=== PATIENT | female | born 1960 | race Caucasian/White ===

== ENCOUNTER 2017-09-09 14:31 | Outpatient (CLI) | payer OTHER ==
--- NOTE | 2017-09-11 16:35 | PET ---
NUCLEAR MEDICINE FDG PET CT: (Positron Emission Tomography) DATE: 09/09/17 HISTORY: 57-year-old female with metastatic lung cancer. Restaging. COMPARISON: 10/29/13. TECHNIQUE: IV injection F-18 Fluorodeoxyglucose (FDG) dose: 13.1 mCi PET and attenuation-correction CT performed from skull base to proximal thighs. FINDINGS: SUV (standard uptake value) numbers given are maximum SUV's: There are multiple new FDG-avid lesions on the current study compared to 2013, including: A 1 x 1 cm left Level V supraclavicular lymph node with SUV of 5.0. Right scapular body at the junction of the coracoid process with SUV of 7.0. Large left hilar/perihilar and left paramediastinal upper lobe pulmonary mass with SUV of 22.1 at it s anterior superior portion. An approximately 2 x 1.5 cm midline, pretracheal anterior mediastinal node (posterior to the upper p ortion of midline sternotomy defect) with SUV of 13.6. Approximately 1.0 cm pulmonary nodule anterior segment left upper lobe with SUV of 3.4. In the anterior portion of the left hilum, enveloped by, and inseparable from, the atelectatic lung tissue at the medial aspect of the left upper lobe, a hypermetabolic lesion with SUV of 7.3. An enlarged, approximately 3 x 2.5 cm gastrohepatic ligament lymph node with SUV of 12.8. Large 6 x 3.5 cm, right adrenal mass with SUV of 7.9. Large 8 x 5.5 cm left adrenal mass with SUV of 12.7 (the maximum SUV is at anterosuperior aspect of mass). Slightly inferior to the level of the left renal artery, a 2.5 x 1.5 cm left paraaortic retroperiton eal lymph node with SUV of 13.8. A 1.5 x 1.5 cm retroperitoneal lymph node just inferior to the crotch of the bifurcation of the abdo ning aorta with SUV of 4.7. There is a left pleural effusion without increased FDG uptake. IMPRESSION: 1. Metastatic lung cancer with large left primary lung tumor mass, and multiple FDG-avid metastatic lesions in the abdomen, chest, and one in the left neck. 2. These include very large bilateral adrenal metastases. 3. Left pleural effusion. JN R POS: [facility]
== END 2017-09-09 14:32 | disposition home or self-care (01) ==
LOC: PET 14:31
PROVIDERS: ATTEND Internal Medicine Hematology & Oncology
DX: C34.91 Malignant neoplasm of unspecified part of right bronchus or lung (principal); C79.72 Secondary malignant neoplasm of left adrenal gland; C79.71 Secondary malignant neoplasm of right adrenal gland; J90 Pleural effusion, not elsewhere classified
CPT/HCPCS: 78815; A9552

== ENCOUNTER 2017-09-18 13:05 | Day surgery (SDC) | payer OTHER ==
[2017-09-18] MEDS ORDERED: Palonosetron HCl 0.25 MG, Admixture Fee 1 EACH in Sodium Chloride 0.9% 50 ML IVPB SCH (13:15)
[2017-09-18] MEDS ORDERED: ADMIXTURE FEE IVPB SCH (13:30)
[2017-09-18] MEDS ORDERED: CARBOPLATIN IVPB SCH (13:30)
[2017-09-18] MEDS ORDERED: SODIUM CHLORIDE 0.9% IVPB SCH ×2 (13:30→14:15)
[2017-09-18] MEDS ORDERED: SODIUM CHLORIDE IVPB SCH (13:30)
[2017-09-18] MEDS ORDERED: Dexamethasone 10 MG, Admixture Fee 1 EACH in Sodium Chloride 0.9% 50 ML IVPB SCH (13:30)
[2017-09-18] MEDS ORDERED: Cyanocobalamin 1000 MCG/ML VIAL SC SCH (13:30)
[2017-09-18] MEDS ORDERED: PEMETREXED IVPB SCH ×2 (13:30→14:15)
[2017-09-18] MEDS ORDERED: Sodium Chloride 0.9% 20 ML ONE (13:47)
== END 2017-09-18 16:09 | disposition home or self-care (01) ==
LOC: ONC/OP 13:05
PROVIDERS: ATTEND Internal Medicine Hematology & Oncology
DX: Z51.11 Encounter for antineoplastic chemotherapy (principal); C34.90 Malignant neoplasm of unspecified part of unspecified bronchus or lung; C79.31 Secondary malignant neoplasm of brain; J42 Unspecified chronic bronchitis; E03.9 Hypothyroidism, unspecified; I25.10 Atherosclerotic heart disease of native coronary artery without angina pectoris; J90 Pleural effusion, not elsewhere classified; F17.210 Nicotine dependence, cigarettes, uncomplicated; F32.9 Major depressive disorder, single episode, unspecified; Z79.899 Other long term (current) drug therapy; Z91.041 Radiographic dye allergy status; Z88.8 Allergy status to other drugs, medicaments and biological substances; Z95.1 Presence of aortocoronary bypass graft; Z90.710 Acquired absence of both cervix and uterus; Z98.890 Other specified postprocedural states; Z92.3 Personal history of irradiation
CPT/HCPCS: 96367; 96372; 96413; 96417; A4216; J1100; J1642; J2469; J3420; J7050; J9045; J9305

== ENCOUNTER 2017-10-09 12:08 | Day surgery (SDC) | payer OTHER ==
[2017-10-09] MEDS ORDERED: Sodium Chloride 0.9% 20 ML ONE (12:24)
[2017-10-09] MEDS ORDERED: Cyanocobalamin 1000 MCG/ML VIAL SC SCH (12:45)
[2017-10-09] MEDS ORDERED: SODIUM CHLORIDE 0.9% IVPB SCH (12:45)
[2017-10-09] MEDS ORDERED: SODIUM CHLORIDE IVPB SCH ×2 (12:45→13:30)
[2017-10-09] MEDS ORDERED: Palonosetron HCl 0.25 MG, Admixture Fee 1 EACH in Sodium Chloride 0.9% 50 ML IVPB SCH (12:45)
[2017-10-09] MEDS ORDERED: Dexamethasone 10 MG, Admixture Fee 1 EACH in Sodium Chloride 0.9% 50 ML IVPB SCH (12:45)
[2017-10-09] MEDS ORDERED: CARBOPLATIN IVPB SCH ×2 (12:45→13:30)
[2017-10-09] MEDS ORDERED: PEMETREXED IVPB SCH (12:45)
[2017-10-09] MEDS ORDERED: ADMIXTURE FEE IVPB SCH ×2 (12:45→13:30)
[2017-10-09 16:37] VITALS: BP 119/54
== END 2017-10-09 16:47 | disposition home or self-care (01) ==
LOC: ONC/OP 12:08
PROVIDERS: ATTEND Internal Medicine Hematology & Oncology
DX: Z51.11 Encounter for antineoplastic chemotherapy (principal); C34.91 Malignant neoplasm of unspecified part of right bronchus or lung; C79.31 Secondary malignant neoplasm of brain; J90 Pleural effusion, not elsewhere classified; J42 Unspecified chronic bronchitis; F17.200 Nicotine dependence, unspecified, uncomplicated; E03.9 Hypothyroidism, unspecified; I25.10 Atherosclerotic heart disease of native coronary artery without angina pectoris; Z79.52 Long term (current) use of systemic steroids; Z79.82 Long term (current) use of aspirin; Z79.899 Other long term (current) drug therapy; Z91.041 Radiographic dye allergy status; Z88.8 Allergy status to other drugs, medicaments and biological substances; Z95.1 Presence of aortocoronary bypass graft; Z92.3 Personal history of irradiation
CPT/HCPCS: 80053; 80061; 80076; 82248; 83615; 84100; 84550; 96367; 96413; 96417; A4216; J1100; J1453; J1642; J2469; J3420; J7050; J9045; J9305

== ENCOUNTER 2017-10-30 15:34 | Day surgery (SDC) | payer OTHER ==
[2017-10-30 16:42] VITALS: BP 124/58; TEMP 97.7
[2017-10-30] MEDS ORDERED: CARBOPLATIN IVPB SCH (16:45)
[2017-10-30] MEDS ORDERED: Palonosetron HCl 0.25 MG in Sodium Chloride 0.9% 50 ML IVPB SCH (16:45)
[2017-10-30] MEDS ORDERED: PEMETREXED IVPB SCH (16:45)
[2017-10-30] MEDS ORDERED: SODIUM CHLORIDE 0.9% IVPB SCH ×2 (16:45)
[2017-10-30] MEDS ORDERED: Dexamethasone 10 MG in Sodium Chloride 0.9% 50 ML IVPB SCH (16:45)
[2017-10-30] MEDS ORDERED: Cyanocobalamin 1000 MCG/ML VIAL SC SCH (16:45)
[2017-10-30] MEDS ORDERED: Folic Acid 1 MG TAB PO SCH (17:00)
[2017-10-30] MEDS ORDERED: Pegfilgrastim 6 MG/0.6 ML Delivery Kit SQ SCH (17:45)
== END 2017-10-30 20:45 | disposition home or self-care (01) ==
LOC: ONC/OP 15:34
PROVIDERS: ATTEND Internal Medicine Hematology & Oncology
DX: Z51.11 Encounter for antineoplastic chemotherapy (principal); C34.91 Malignant neoplasm of unspecified part of right bronchus or lung; E03.9 Hypothyroidism, unspecified; I25.10 Atherosclerotic heart disease of native coronary artery without angina pectoris; F17.200 Nicotine dependence, unspecified, uncomplicated; Z91.041 Radiographic dye allergy status
CPT/HCPCS: 36415; 80053; 82248; 83615; 84100; 84550; 96367; 96372; 96377; 96413; 96417; J1100; J2469; J2505; J3420; J7050; J9045; J9305

== ENCOUNTER 2017-11-14 09:48 | Day surgery (SDC) | payer OTHER ==
[2017-11-14] MEDS ORDERED: Sodium Chloride 0.9% 20 ML ONE (13:59)
[2017-11-14 14:02] VITALS: TEMP 98.1
[2017-11-14 14:55] VITALS: BP 110/51
--- NOTE | 2017-11-14 17:40 | PET ---
NUCLEAR MEDICINE FDG PET CT: (Positron Emission Tomography) DATE: 11/14/17 HISTORY: Restaging of metastatic lung cancer in 57-year-old female. COMPARISON: PET scan of 09/09/17. TECHNIQUE: IV injection F-18 Fluorodeoxyglucose (FDG) dose: 11.5 mCi PET and attenuation-correction CT performed from skull base to proximal thighs. FINDINGS: SUV (standard uptake value) numbers given are maximum SUV's: The previously demonstrated left level V lymph node with previous SUV of 5.0 currently has SUV of 3.3 , but appears larger in size now. The previously demonstrated right scapular lesion with SUV of 7.0 has grown in size, and now has SUV of 8.6. At the left anterior upper cervicothoracic junction, there are two new hypermetabolic lymph nodes. Th e one directly posterior to the lower edge of the sternocleidomastoid muscle has SUV of 3.4, while th e one directly posterior to that has SUV of 3.3 (both are at the T2 level). The large, confluent left paramediastinal/left hilar mass has not significantly changed in size, but its SUV has decreased from maximum of 22.1 at its anterior superior portion, to a current SUV of 9.9 in that location. The posterior superior component of this mass had previous SUV of 12.2, and has cur rent SUV of 10.9. The midline, pretracheal, anterior mediastinal lymph node (posterior to the upper portion of midline sternotomy defect) had previous SUV of 13.6. Current SUV is 11.7. Right mediastinal/hilar lymph node anterior to the right main stem bronchus previously had maximum DON V of 5.0, and currently has SUV of 5.1 (not mentioned on previous report). Also not mentioned on previous report, there was a right hilar lymph node with maximum SUV of 3.9, wh ich now has SUV of 5.9. The previously mentioned small pulmonary nodule in the anterior segment of left upper lobe with previ ous SUV of 3.4 now has SUV of 2.2. There is a new finding of a cluster of many mildly enlarged left subpectoral lymph nodes, with SUV of 4.5. The lesion at the anterior portion of left hilum, enveloped by, and inseparable from, the atelectatic lung tissue at the medial aspect of the left upper lobe, with previous SUV of 7.3 now has SUV of 4.1 . The previously described gastrohepatic ligament lymph node with SUV of 12.8 now has SUV of 4.8. Not mentioned previously, cluster of francisco hepatis lymph nodes with SUV of 4.2 currently also has SUV of 4.2. The large right adrenal mass with previous SUV of 7.3 has current SUV of 6.8. The very large left adrenal mass with previous SUV of 12.7 now has SUV of 7.3 but has grown since the previous study, from previous dimensions of 8 x 5.5 cm, to current dimensions of 9.5 x 6.5 cm. The left para-aortic retroperitoneal lymph node just inferior to the level of the left renal artery h ad previous SUV of 13.8 and has current SUV of 7.2, but has increased in size. There is a new finding of two new left para-aortic retroperitoneal lymph nodes slightly inferior to t hat, with SUV of 4.0. The previous retroperitoneal lymph node just inferior to the crotch of the bifurcation of the abdomin al aorta with SUV of 4.7 now has SUV of 4.4. Not mentioned on previous report, a right retrocrural lymph node with SUV of 7.0 now has SUV of 7.9. Superior to that, another right retrocrural lymph node had previous SUV of 11.9, and has current SUV of 8.6. The volume of left pleural effusion is stable. IMPRESSION: 1. Left lung cancer with widespread metastatic disease. 2. There has been mixed interval response to therapy, with decreasing SUV's in many of the lesio ns, increasing SUV in other lesions, growth in size despite decreasing SUV of other lesions, and randy ral new hypermetabolic lesions. NENA Delcid POS: [facility]
== END 2017-11-14 16:10 | disposition home or self-care (01) ==
LOC: PET 09:48 → ONC/OP 09:48 → EDSTATUS 10:45 → ONC/OP 16:10
PROVIDERS: ATTEND Internal Medicine Hematology & Oncology
PROC: 30233R1 Transfusion of Nonautologous Platelets into Peripheral Vein, Percutaneous Approach (ICD-10-PCS; principal; 2017-11-14)
DX: D64.9 Anemia, unspecified (principal); D69.6 Thrombocytopenia, unspecified; C34.91 Malignant neoplasm of unspecified part of right bronchus or lung; I25.10 Atherosclerotic heart disease of native coronary artery without angina pectoris; E03.9 Hypothyroidism, unspecified; Z91.041 Radiographic dye allergy status; Z88.8 Allergy status to other drugs, medicaments and biological substances; Z79.82 Long term (current) use of aspirin; Z79.899 Other long term (current) drug therapy; C71.9 Malignant neoplasm of brain, unspecified
CPT/HCPCS: 36430; 70553; 78815; 86900; 86901; A4216; A9552; A9579; P9035

== ENCOUNTER 2017-11-14 14:56 | Outpatient (CLI) | payer OTHER ==
[~2017-11-14 14:56] MED LIST: Gadobenate Dimeglumine 529 MG/1 ML (20ML VIAL) ONE
--- NOTE | 2017-11-14 16:09 | MRI ---
BRAIN MRI WITH AND WITHOUT CONTRAST: 11/14/17 HISTORY: Metastatic lung cancer. Occasional blurred vision in the afternoons. COMPARISON: 10/04/17. TECHNIQUE: Brain MRI is performed with and without intravenous gadolinium administration. Multisequential, multi planar imaging is performed. FINDINGS: Redemonstration of postsurgical change along the left frontal convexity. There is a small fluid colle ction deep to the left frontal calvarium, unchanged from the prior examination. There is evidence of hemosiderin deposition in this region on the axial GRE sequence. No evidence of acute hemorrhage on t he axial GRE sequence. There is associated and essentially stable vasogenic edema. Additional white m atter hyperintensity, periventricular in distribution are unchanged as well. There is a stable T2 and FLAIR hyperintensity involving the right temporal lobe. Central arterial flow voids are maintained. Absent restricted diffusion. Adequate aeration of the sinuses and mastoid air cells on the FLAIR sequ ence. On the postcontrast images, there is enhancement at the operative site, in the left frontal lobe. The operative cavity with associated enhancement currently measures 2.7 cm mediolateral x 2.0 cm anterio r posterior x 2.4 cm craniocaudal. Previously, this area of postsurgical change measured 2.8 x 2.1 x 2.1 cm. There are enhancing lesions in the left and right periventricular white matter, right tempora l lobe which are unchanged in size in the short interval between exams. There is a stable and subtle enhancing focus in the right frontal cortex. No new enhancing lesions are appreciated. IMPRESSION: 1. Stable postsurgical change. 2. Stable enhancing lesion. 3. No new lesions are appreciated. POS: [facility]
== END 2017-11-14 14:57 | disposition home or self-care (01) ==
LOC: MRI 14:56
PROVIDERS: ATTEND Internal Medicine Hematology & Oncology
DX: C79.31 Secondary malignant neoplasm of brain (principal); C34.91 Malignant neoplasm of unspecified part of right bronchus or lung; H53.8 Other visual disturbances; Z98.890 Other specified postprocedural states
CPT/HCPCS: 70553

== ENCOUNTER 2017-11-18 20:02 | Inpatient (IN) | payer OTHER, SELFPAY ==
[2017-11-18 20:44] LABS: Hematocrit 24.8 % (36.0-47.0); Red Blood Cell (RBC) Count 2.81 mill/uL (4.20-5.40); White Blood Cell (WBC) Count 9.3 thou/uL (4.8-10.8)
[2017-11-18 20:45] LABS: PTT 47.1 SEC (22.9-36.1); Prothrombin Time 15.2 SEC (12.0-14.7)
[2017-11-18 20:55] LABS: Lactic Acid - Sepsis 1.5 mmol/L (0.5-2.2)
[2017-11-18] MEDS ORDERED: Fentanyl 100 MCG/2 ML VIAL ONE ×2 (20:55→23:11)
[2017-11-18 21:00] LABS: ALT (SGPT) Less than 7 U/L (8-55); AST (SGOT) 11 U/L (5-34); Alkaline Phosphatase 122 U/L (40-150); Anion Gap 16 mmol/L (10-20); BUN (Urea Nitrogen) 12 mg/dL (9.8-20.1); Bilirubin, Total 0.4 mg/dL (0.2-1.2); CK (CPK) 33 U/L (29-168); Calc. Creatinine Clearance 0 mL/min (70-130); Calcium 8.9 mg/dL (7.8-10.44); Carbon Dioxide 22 mmol/L (22-29); Chloride 102 mmol/L (98-107); Estimated GFR-MDRD 74; Magnesium 1.9 mg/dL (1.6-2.6); Protein, Total 6.4 g/dL (6.0-8.3)
[2017-11-18] MEDS ORDERED: Oseltamivir 75 MG CAP PO SCH (21:00)
[2017-11-18 21:02] LABS: #Lymphocytes 0.5 thou/uL (1.20-3.40); #Monocytes 0.8 thou/uL (0.11-0.59); %Basophils 0.1 % (0.0-1.0); %Eosinophils 0.2 % (0.0-10.0); %Lymphocytes 5.6 % (21.0-51.0); %Monocytes 8.3 % (0.0-10.0); Mean Platelet Volume 9.9 fL (7.4-10.4)
[2017-11-18 21:04] LABS: Troponin I 0.028 ng/mL (< 0.028)
--- NOTE | 2017-11-18 21:13 | RAD ---
UPRIGHT PORTABLE CHEST ONE VIEW: 11/18/17 HISTORY: 57-year-old female with chest pain and fever. Right subclavian catheter injection port. Left pleural effusion. Large poorly circumscribed mass in t he left hilar region shows little change from [facility] film from a PET scan dated 11/14/17. Chronic lung changes in the right lung. The amount of right pleural effusion may be slightly more prominent than on the prior study. IMPRESSION: Large poorly circumscribed left hilar and perihilar and mediastinal mass. Moderate sized left pleural effusion, possibly slightly larger than on the prior study but this may be related to positional tres nge. Stable chronic lung changes. No confluent pneumonia. POS: [facility]
[2017-11-18] MEDS ORDERED: Cefepime 2 GM, Syringe 2.5 ML in Sterile Water 10 ML SLOW IVP SCH (21:15)
--- NOTE | 2017-11-18 22:44 | CT ---
CHEST CT SCAN WITHOUT IV CONTRAST: 11/18/17 HISTORY: Chest pain and fever. Extensive chronic lung changes are noted. Again noted is a prominent left hilar and suprahilar lung m ass and/or associated atelectasis. There is some left pleural effusion. This is a stable appearance f rom prior CT scan in association with PET scan dated 11/14/17. Again noted are markedly abnormally enlarged left and right adrenal glands. Evidence for hiatal herni a. Small stable left upper lobe poorly circumscribed nodule . IMPRESSION: Extensive chronic lung changes. Stable left pleural effusion. Stable left perihilar and left mediasti nal lung mass and atelectasis. Small stable poorly circumscribed left upper lobe pulmonary nodule. St able markedly enlarged right and left adrenal glands. No significant change from CT scan associated w ith PET scan dated 11/14/17. No evidence for acute pneumonia. POS: [facility]
--- NOTE | 2017-11-19 00:16 | HP ---
PRIMARY CARE PHYSICIAN: Blaze Sy M.D. PRIMARY ONCOLOGIST: Ivett Gaspar M.D. DATE OF ADMISSION: 11/18/2017 TIME OF SERVICE: 2230 CHIEF COMPLAINT: Fever. HISTORY OF PRESENT ILLNESS: Ms. Ly is a 57-year-old female with a history of stage IV lung can cer, now on her third round of chemotherapy. She does not know which she is getting. She has known metastasis to the brain, status post brain tumor resection x2. She was on radiation, D ecadron, and Dilantin. She is off of those now. She presented to the emergency department today with about a 1 day history of temperatures to 100.4, not 104.0 or 104.9 as the ER note said; cough, body aches, and just overall feeling poorly. She got multiple family members including her who have had the flu this week, evaluation in [facility] emergency department showed a flu screen to be negative, and a chest x-ray showed no acute disease . CT scan was done that showed no acute pneumonia, stable lung masses and effusions. Her last dose chemotherapy was 2-1/2 weeks ago. She is due for chemo this coming Monday, 3-4 days from now. Last brain radiation was in 09/2017. She does have a cough, chronically. Cough has not really increased in frequency, but has in severity . She is only producing clear sputum. She has had no blood. Family reports anorexia. She is really not eating much due to lack of appetite. She does complain o f some chest discomfort, worse with palpation at the lower aspect of her ribcage. She has no other c urrent complaints. Further evaluation in the emergency department, did show to be tachycardic, tachypneic, hypoxic, requ iring oxygen 95% with 2 liters. White blood cell count normal and had 86% granulocytes. We were called for further workup and admission. PAST SURGICAL HISTORY: 1. Stage IV lung cancer. 2. Hyperlipidemia. 3. Hypothyroidism. PAST SURGICAL HISTORY: 1. Hysterectomy. 2. Coronary artery bypass grafting x3 vessels. 3. Brain tumor resection x2. 4. Shoulder surgery remotely. HOME MEDICATIONS: 1. Zocor 40 mg p.o. at bedtime. 2. Synthroid 125 mcg daily. 3. Wellbutrin 150 mg p.o. q.a.m. 4. Zofran 8 mg as needed. 5. A diuretic, she cannot recall the name of. 6. KCl daily. 7. Tylenol 4 as needed. 8. Compazine. ALLERGIES: IODINE and AMIODARONE. FAMILY HISTORY: Negative for clotting or bleeding disorder, no venous function. SOCIAL HISTORY: Significant for social alcohol weekly. She continues to smoke one pack per day for the last 30+ years. Denies IV drug use. REVIEW OF SYSTEMS: A 10-point review of systems was performed and negative for all other systems exc ept as stated as per HPI. PHYSICAL EXAMINATION: VITAL SIGNS: Temperature 98.3, pulse 114, blood pressure 108/44, respiratory rate 20, satting 95% on 2 liters. This is after 2 liters of fluid in the ER. GENERAL: She is awake. She is alert. She is oriented x3. She is chronically ill appearing. She i s in no acute distress currently. HEENT: Normocephalic, atraumatic. She has alopecia capitis present. Mucous membranes are moist. I do not see mucositis. She has no thrush. NECK: Supple, without lymphadenopathy, JVD, or thyromegaly. CHEST: Lungs have coarse bilateral breath sounds. She has some mid lung field crackles that seem to clear somewhat with deep inspiration. She has dullness to the left base. No E to A changes. She h as no wheezing, no prolonged expiratory phase. CARDIOVASCULAR: She is tachycardic and regular. Normal S1, S2. I do not appreciate murmurs. ABDOMEN: Soft, tender to palpation along the inferior costal margin. She has no rebound, rigidity o r guarding. She has normoactive bowel sounds present in upper quadrant. EXTREMITIES: No cyanosis, no clubbing, and no edema. She has 2+ peripheral pulses. MUSCULOSKELETAL: Normal to inspection. She does have muscle wasting, but the joints appear normal. There is no inflammation and no palpable effusions. NEUROLOGIC: Cranial nerves II-XII are grossly intact. She has no focal deficits, 4-5/5 strength and normal speech pattern. SKIN: Dry. She has some mild tenting present. Capillary refill appears normal. LABORATORY DATA: CMP is normal except for albumin a little bit low at 3.4. CBC showed a white count of 9.3 with 86% granulocytes, hemoglobin 8.3, hematocrit of 24.8, platelets of 45,000. I find this interesting that her white count is high normal. Given that she has got low platelets and hemoglobin , I suspect that her white count is actually higher than what her baseline would be without this even t. Lactic acid normal at 1.5, CK-MB 0.5, troponin I is normal at 0.028 and influenza screen was negative . Her chest x-ray showed moderate left effusion and appears chronic. CT scan of the chest shows a s table chronic tumors, adrenal gland enlargement and left effusion. No acute pneumonias. ASSESSMENT AND PLAN: 1. Probable influenza. Influenza screen misses approximately 30% of patients. I agree with the ER physician's assessment and giving her the Tamiflu. We will treat her empirically with Tamiflu 75 mg p.o. b.i.d. We will support her vital signs otherwise, and admit her to inpatient. She would like t o go to telemetry as we want to keep her away from the immunocompromised oncology patients. 2. Sepsis: Tachycardia, tachypnea, presumed infection, and what I suspect is an elevated white bloo d cell count. We will cover with antibiotics initially with cefepime and levofloxacin for respirator y coverage. She has no intra-abdominal symptoms. The patient got 2 liters of IV fluids in the emerg ency department. We will give her 1 more liter of bolus and then 150 mL an hour. Lactic acid curren tly is normal. We will recheck labs in the morning. 3. Stage IV lung cancer on chemotherapy. Oncology to be consulted. 4. Hyperlipidemia. We will hold her Zocor for now. 5. Hypothyroidism on Synthroid, which we will continue. 6. Anorexia/cachexia: I will start her on Megace 800 mg daily. We will attempt to give it to her o nce a day and if she is intolerant, then we will try dividing it to twice a day. Albumin is low at 3 .4, I have asked nutrition to see her. 7. Acute hypoxic respiratory failure requiring oxygen at present. We will continue oxygen and wean as tolerated.
[2017-11-19] MEDS ORDERED: Ondansetron HCl/PF 4 MG/2 ML Vial IVP PRN (00:31)
[2017-11-19] MEDS ORDERED: Acetaminophen 325 MG TAB PO PRN (00:31)
[2017-11-19] MEDS ORDERED: HYDROcodone/Acetaminophen 5/325 mg Tablet PO PRN (00:31)
[2017-11-19] MEDS ORDERED: Guaifenesin DM 100-10/5 ML UDCUP PO PRN (00:31)
[2017-11-19 00:38] VITALS: BMI 21.1
[2017-11-19] MEDS: Sodium Chloride 0.9% 1,000 ML IV SCH ×4 (01:30→20:27)
[2017-11-19] MEDS: Levothyroxine Sodium 125 MCG TAB PO SCH (05:38)
[2017-11-19 07:39] LABS: #Lymphocytes 0.2 thou/uL (1.20-3.40); #Monocytes 0.5 thou/uL (0.11-0.59); #Neutrophils 5.1 thou/uL (1.40-6.50); %Basophils 0.4 % (0.0-1.0); %Eosinophils 0.2 % (0.0-10.0); %Lymphocytes 3.9 % (21.0-51.0); %Monocytes 9.2 % (0.0-10.0); Hematocrit 21.2 % (36.0-47.0); Mean Platelet Volume 9.4 fL (7.4-10.4); Red Blood Cell (RBC) Count 2.39 mill/uL (4.20-5.40); White Blood Cell (WBC) Count 5.9 thou/uL (4.8-10.8)
[2017-11-19 07:42] LABS: ALT (SGPT) Less than 7 U/L (8-55); AST (SGOT) 9 U/L (5-34); Alkaline Phosphatase 100 U/L (40-150); Anion Gap 9 mmol/L (10-20); BUN (Urea Nitrogen) 10 mg/dL (9.8-20.1); Bilirubin, Total 0.2 mg/dL (0.2-1.2); Calc. Creatinine Clearance 89 mL/min (70-130); Carbon Dioxide 24 mmol/L (22-29); Chloride 106 mmol/L (98-107); Estimated GFR-MDRD 85; Globulin 2.5 g/dL (2.4-3.5); Magnesium 1.5 mg/dL (1.6-2.6); Protein, Total 5.4 g/dL (6.0-8.3)
[2017-11-19] MEDS ORDERED: Bupropion 150 MG SR TAB PO SCH (09:00)
[2017-11-19] MEDS ORDERED: Cefepime 2 GM in Sodium Chloride 0.9% 100 ML IVPB SCH (09:00)
[2017-11-19] MEDS: HYDROcodone/Acetaminophen 10/325 mg Tablet PO PRN ×2 (09:29→20:28)
[2017-11-19] MEDS: Bupropion 150 MG XL TAB PO SCH (09:30)
[2017-11-19] MEDS: Famotidine/PF 20 mg/2ml Vial SLOW IVP SCH ×2 (09:30→20:28)
[2017-11-19] MEDS: Megestrol Acetate 800 MG/20 ML UDCUP PO SCH (09:31)
[2017-11-19] MEDS: Oseltamivir 75 MG CAP PO SCH ×2 (09:31→20:28)
[2017-11-19] MEDS: Docusate 100 MG CAP PO SCH (09:34)
--- NOTE | 2017-11-19 13:39 | PDOC.PN ---
- Subjective Encounter Start Date: 11/19/17 Encounter Start Time: 09:20 Pt seen for followup re: sepsis. Denies chest pain, shortness of breath, fevers or chills. - Objective Resuscitation Status: Resuscitation Status FULL:Full Resuscitation Vital Signs & Weight: Vital Signs (12 hours) Temp Pulse Resp BP BP Pulse Ox 11/19/17 12:00 98.2 F 101 H 20 107/51 L 97 11/19/17 08:00 98.2 F 120 H 18 95 11/19/17 07:35 98.2 F 120 H 18 95/50 L 95 11/19/17 04:00 97.7 F 129 H 24 H 105/52 L 93 L Weight Admit Weight 143 lb 3.2 oz Weight 143 lb 3.2 oz I&O: 11/18/17 11/19/17 11/20/17 06:59 06:59 06:59 Intake Total 990 Output Total 600 Balance 390 Result Diagrams: 11/19/17 06:50 11/19/17 06:50 EKG Reviewed by me: Yes (Tele: sinus tachycardia) Phys Exam - Physical Examination Constitutional: NAD HEENT: moist MMs Neck: supple Respiratory: clear to auscultation bilateral S1, S2, tachy Gastrointestinal: soft, non-tender Neurological: moves all 4 limbs Psychiatric: normal affect Skin: no rash Dx/Plan (1) Sepsis Code(s): A41.9 - SEPSIS, UNSPECIFIED ORGANISM Status: Acute (2) Influenza Code(s): J11.1 - FLU DUE TO UNIDENTIFIED INFLUENZA VIRUS W OTH RESP MANIFEST Status: Suspected (3) CAD (coronary artery disease) Code(s): I25.10 - ATHSCL HEART DISEASE OF [place] CORONARY ARTERY W/O ANG PCTRS Status: Chronic Qualifiers: Coronary Disease-Associated Artery/Lesion type: bypass graft [place] vs. transplanted heart: [place] heart Associated angina: without angina Qualified Code(s): I25.810 - Atherosclerosis of coronary artery bypass graft(s) without angina pectoris (4) COPD (chronic obstructive pulmonary disease) Status: Chronic Qualifiers: COPD type: emphysema Emphysema type: unspecified Qualified Code(s): J43.9 - Emphysema, unspecified (5) H/O: lung cancer Code(s): Z85.118 - PERSONAL HISTORY OF MALIGNANT NEOPLASM OF BRONCH[place] AND LUNG Status: Chronic (6) HTN (hypertension) Code(s): I10 - ESSENTIAL (PRIMARY) HYPERTENSION Status: Chronic Qualifiers: Hypertension type: essential hypertension Qualified Code(s): I10 - Essential (primary) hypertension (7) Hypothyroidism Code(s): E03.9 - HYPOTHYROIDISM, UNSPECIFIED Status: Chronic Qualifiers: Hypothyroidism type: unspecified Qualified Code(s): E03.9 - Hypothyroidism , unspecified - Plan continue antibiotics, PT/OT, out of bed/ambulate * . Continue IV antibiotics as below, continue Tamiflu. Check VQ scan to r/o PE (elevated d-dimer, iodine allergy). Monitor vital signs, titrate antihypertensives as needed. CAD stable. Check TSH. Review of Systems - Review of Systems Respiratory: Cough. negative: Dry, Shortness of Breath, Hemoptysis, SOB with Excertion, Pleuritic Pain, Sputum, Wheezing Cardiovascular: negative: chest pain, palpitations, orthopnea, paroxysmal nocturnal dyspnea, edema, light headedness - Medications/Allergies Allergies/Adverse Reactions: Allergies Allergy/AdvReac Type Severity Reaction Status Date / Time amiodarone Allergy Verified 07/14/17 14:50 iodine AdvReac Intermediate Emesis Verified 07/14/17 14:50 Medications: Current Medications Acetaminophen (Tylenol) 650 mg PO Q4H PRN PRN Reason: Headache/Fever or Pain Hydrocodone Bitart/Acetaminophen ([place] 10/325) 2 tab PO Q4H PRN PRN Reason: Severe Pain (7-10) Last Admin: 11/19/17 09:29 Dose: 2 tab Hydrocodone Bitart/Acetaminophen ([place] 5/325) 2 tab PO Q4H PRN PRN Reason: Moderate Pain (4-6) Albuterol/Ipratropium (Duoneb) 3 ml NEB [id number]-DE PRN PRN Reason: SOB &/or Wheezing Bupropion HCl (Wellbutrin Xl) [facility] Last Admin: 11/19/17 09:30 Dose: 150 mg Docusate Sodium (Colace) 100 mg [facility] Last Admin: 11/19/17 09:34 Dose: Not Given Famotidine (Pepcid) 20 mg SLOW IVP Q12HR [facility] Last Admin: 11/19/17 09:30 Dose: 20 mg Guaifenesin/Dextromethorphan (Robitussin Dm) 15 ml PO Q4H PRN PRN Reason: Cough Levofloxacin 750 mg/ Device 150 mls @ 100 mls/hr IVPB Q24HR [facility] Last Admin: 11/19/17 01:30 Dose: 150 mls Sodium Chloride (Normal Saline 0.9%) 1,000 mls @ 150 mls/hr IV .Q6H40M [facility] Last Admin: 11/19/17 06:20 Dose: Not Given Levothyroxine Sodium (Synthroid) 125 mcg PO 0600 [facility] Last Admin: 11/19/17 05:38 Dose: 125 mcg Megestrol Acetate (Megace) 800 mg PO DAILY [facility] Last Admin: 11/19/17 09:31 Dose: 800 mg Ondansetron HCl (Zofran) 8 mg IVP Q6H PRN PRN Reason: Nausea/Vomiting Oseltamivir Phosphate (Tamiflu) 75 mg PO BID [facility] Stop: 11/23/17 21:01 Last Admin: 11/19/17 09:31 Dose: 75 mg
[2017-11-19] MEDS ORDERED: Ondansetron ODT 8 MG TAB PO PRN (13:57)
[2017-11-19] MEDS ORDERED: Prochlorperazine Maleate 5 MG TAB PO PRN (13:58)
[2017-11-19] MEDS ORDERED: Acetaminophen/Codeine 30-300mg Tablet PO PRN (14:05)
--- NOTE | 2017-11-19 14:39 | CON ---
DATE OF ADMISSION: 11/19/2017 DATE OF CONSULTATION: 11/19/2017 HISTORY OF PRESENT ILLNESS: Ms. Ly is 57-year-old female with relapsed stage IV adenocarcinoma of the lung with known brain metastases as well as bilateral lung metastases. She has been being tr eated with carboplatin and Alimta and her last cycle was approximately 3 weeks ago. She presented to the emergency room with fever above 100 and poor oral intake. She was diagnosed with a viral syndro me, her influenza test was negative. However, there is some concern that she may still have the flu and Tamiflu has been started. She is feeling slightly better since being admitted and her fever is d own. She does complain of an increase in her baseline shortness of breath, but no increase in cough. She is overall weak because she is not eating anything. She does state that she has had a decent i ntake of water, but has not eaten anything and continued to lose weight. Unfortunately, her scan las t week showed slow progression of her cancer, although her brain MRI is stable. She denies any sore throat, ear pain or swollen lymph nodes. PAST MEDICAL HISTORY: 1. Stage IV non-small cell lung cancer of the lung, adenocarcinoma, recent progression on PET scan. 2. History of treated brain metastases. 3. Hyperlipidemia. 4. Hypothyroidism. CURRENT MEDICATIONS: 1. Tylenol 650 mg p.o. q.4 h. p.r.n. 2. [place] p.r.n. 3. Wellbutrin 150 mg p.o. q.a.m. 4. Cefepime 2 grams IV q.8 h. 5. Colace p.r.n. 6. Pepcid p.r.n. 7. Robitussin p.r.n. 8. Levaquin 500 mg IV daily. 9. Synthroid 125 mcg p.o. daily. 10. Megace 800 mg p.o. daily. 11. Zofran 8 mg IV q.6 h. p.r.n. 12. Tamiflu 75 mg p.o. b.i.d. ALLERGIES: AMIODARONE and IODINE. SOCIAL HISTORY: She continues to smoke. Lives in [place] and her and family here and are qu ite supportive. She denies any alcohol use. FAMILY HISTORY: Negative. PHYSICAL EXAMINATION: VITAL SIGNS: T-max 99.6, pulse 129, respirations 18-24, O2 saturation 93%-95% on 2 liters nasal love buffy, blood pressure 95-105/50s. GENERAL: She is chronically ill appearing, no acute distress. Quite pleasant, slightly tachypneic. HEENT: Extraocular muscles are intact. Pupils are equal, round, and reactive to light. There are n o oral cavity lesions. NECK: Supple, without lymphadenopathy. CARDIOVASCULAR: Regular rhythm. LUNGS: Bilateral wheezing. ABDOMEN: Hypoactive bowel sounds. Soft, nontender. EXTREMITIES: No edema. LABORATORY DATA AND X-RAY FINDINGS: White blood cell count 5.9, hemoglobin 7.1, platelets 37. Her e lectrolytes are normal with the exception of magnesium of 1.5, AST 9, ALT 7, total protein 5.4. Chest x-ray done in the emergency room showed multiple bilateral masses consistent with metastatic chela ng cancer, but no confluent pneumonia. ASSESSMENT: Ms. Ly is a 57-year-old female with: 1. Fever, not neutropenic. 2. Likely viral syndrome, possibly the flu. 3. Progressive metastatic stage IV lung cancer. 4. Chronic obstructive pulmonary disease with bilateral wheezing. PLAN: 1. I discussed the overall diagnosis and prognosis with she and her , they understand she is slowly progressing. She is due for chemotherapy next week, but this will be held. We will work on s tarting her on Keytruda immunotherapy. 2. I agree with the Tamiflu and the treatment of a viral syndrome. I think the cefepime can be stop ped because she is not neutropenic and Levaquin can be continued at the primary care team's discretio n. 3. We will add nebulizer treatments. 4. I think she can be discharged when she is taking oral intake and the viral syndrome is resolving. 5. We will follow up in the office next week or so.
--- NOTE | 2017-11-19 15:25 | NM ---
VENTILATION PERFUSION SCAN: Date: 11/19/17 HISTORY: Shortness of breath. TECHNIQUE: Dose: 15 mCi Xenon-133 for the ventilation portion of exam and 6.6 mCi technetium-99m MAA for the pe rfusion portion. Ventilation perfusion study was performed. FINDINGS: As the patient has an abnormal CT and chest radiograph and a left upper lobe mass, the chest radiogra ph is not normal. There are areas of matched large defects in much of the left lung. This is concerni ng for indeterminate scan for pulmonary emboli. The right lung demonstrates no evidence of areas of d efinite ventilation perfusion abnormalities. IMPRESSION: Indeterminate scan for pulmonary emboli. POS: [facility]
[2017-11-19] MEDS ORDERED: Atorvastatin Calcium 20 MG TAB PO SCH (21:00)
[2017-11-20] MEDS: Sodium Chloride 0.9% 1,000 ML IV SCH (01:32)
[2017-11-20] MEDS: Levothyroxine Sodium 125 MCG TAB PO SCH (05:04)
[2017-11-20 05:06] VITALS: TEMP 97.8
[2017-11-20] MEDS ORDERED: Potassium Chloride 8 MEQ TAB PO SCH (08:00)
--- NOTE | 2017-11-20 08:08 | DIS ---
TRANSFER OF CARE NOTE PRIMARY CARE PROVIDER: Blaze Sy M.D. DATE OF DISCHARGE: 11/20/2017 DISCHARGE DISPOSITION: Home. FINAL DIAGNOSES: 1. Sepsis, systemic inflammatory response syndrome, viral syndrome. 2. Stage IV lung cancer post-chemotherapy. 3. Coronary artery disease. DISCHARGE MEDICATIONS: Tamiflu 75 mg p.o. b.i.d. for a total of 5 days, Levaquin 500 mg daily for 7 days, Zocor 40 mg p.o. at bedtime, Wellbutrin 150 mg a day, Synthroid 125 mcg a day, Tylenol #4 one p .o. q.4h. p.r.n. ALLERGIES: AMIODARONE, IODINE CONTRAST. PENDING AT THE TIME OF DISCHARGE: Two blood cultures have been drawn. One has a gram positive cocci which is described as negative for staph species, strep species and Enterococcus, listeria. CODE STATUS: Full. HOSPITAL COURSE: [facility] y [facility]. Initial complaint was fever. The patient is on chemotherapy for metastatic lung cance r. Flu screen was negative; however, as influenza screen this is a significant portion she was start ed on Tamiflu. Because of SIRS syndrome she was started on IV antibiotics. She was seen in consulta tion by Dr. Ivett Gaspar. Today the patient is desirous of going home. Vital signs are stable. Com p metabolic profile is normal x2. TSH 1.8, hemoglobin 8.3, 7.1, White count 9.3, 5.9, platelet count diminished. She is being discharged for follow up with Dr. Gaspar per her directions. Follow up w alexey Sy in 1 week. She is to return to the hospital if symptoms become adverse. No procedur es were done. As her positive blood culture x1-2 for an unknown bacteria. It is not associated with any current symptomatology, is considered to be probable contaminant. Prescriptions have been writt en.
[2017-11-20 08:23] VITALS: BP 116/58
[2017-11-20] MEDS: Megestrol Acetate 800 MG/20 ML UDCUP PO SCH (09:12)
[2017-11-20] MEDS: Oseltamivir 75 MG CAP PO SCH (09:13)
[2017-11-20] MEDS: Famotidine/PF 20 mg/2ml Vial SLOW IVP SCH (09:13)
[2017-11-20] MEDS: Docusate 100 MG CAP PO SCH (09:13)
[2017-11-20] MEDS: Bupropion 150 MG XL TAB PO SCH (09:13)
== END 2017-11-20 12:35 | disposition home or self-care (01) | DRG 871 ==
LOC: ERS 20:02 → 2NO 11-19 00:05
PROVIDERS: ADMIT Internal Medicine Infectious Disease; ATTEND Internal Medicine Infectious Disease
DX: A41.89 Other specified sepsis (principal); J96.01 Acute respiratory failure with hypoxia; R64 Cachexia; D69.6 Thrombocytopenia, unspecified; C79.31 Secondary malignant neoplasm of brain; C34.90 Malignant neoplasm of unspecified part of unspecified bronchus or lung; E86.0 Dehydration; D64.9 Anemia, unspecified; E03.9 Hypothyroidism, unspecified; I25.10 Atherosclerotic heart disease of native coronary artery without angina pectoris; F17.210 Nicotine dependence, cigarettes, uncomplicated; Z95.1 Presence of aortocoronary bypass graft; R63.0 Anorexia
CPT/HCPCS: 36415; 71010; 71250; 78582; 80053; 82550; 82553; 83605; 83735; 84443; 84484; 85025; 85379; 85610; 85730; 87149; 93005; 96361; 96365; 96375; 96376; 99406; A4216; A9540; A9558; J0692; J1956; J3010; J3370; J7050; S0028

== ENCOUNTER 2017-12-04 10:16 | Observation (INO) | payer OTHER ==
[2017-12-04 14:58] LABS: Hemoglobin 8.6 g/dL (12.0-16.0); Mean Corpuscular HGB CONC 32.3 g/dL (32.0-36.0); Mean Corpuscular Hemoglobin 30.2 pg (27.0-31.0); Mean Corpuscular Volume 93.5 fl (81.0-99.0); Mean Platelet Volume 7.6 fL (7.4-10.4); Platelet Count 179 thou/uL (130-400); RBC Distribution Width 18.7 % (11.5-14.5); Red Blood Cell (RBC) Count 2.85 mill/uL (4.20-5.40); White Blood Cell (WBC) Count 7.5 thou/uL (4.8-10.8)
[2017-12-04 15:17] LABS: ALT (SGPT) Less than 7 U/L (8-55); AST (SGOT) 11 U/L (5-34); Albumin 3.3 g/dL (3.5-5.0); Alkaline Phosphatase 102 U/L (40-150); Anion Gap 17 mmol/L (10-20); BUN (Urea Nitrogen) 14 mg/dL (9.8-20.1); Bilirubin, Total 0.5 mg/dL (0.2-1.2); Calc. Creatinine Clearance 0 mL/min (70-130); Calcium 9.2 mg/dL (7.8-10.44); Carbon Dioxide 17 mmol/L (22-29); Chloride 105 mmol/L (98-107); Estimated GFR-MDRD 75; Globulin 3.2 g/dL (2.4-3.5); Glucose 64 mg/dL (70-105); Potassium 4.5 mmol/L (3.5-5.1); Protein, Total 6.5 g/dL (6.0-8.3); Sodium 134 mmol/L (136-145)
[2017-12-04 15:29] LABS: #Eosinphils 0.1 thou/uL (0.0-0.7); #Lymphocytes 0.7 thou/uL (1.20-3.40); #Monocytes 0.8 thou/uL (0.11-0.59); %Basophils 0.5 % (0.0-1.0); %Eosinophils 0.9 % (0.0-10.0); %Lymphocytes 9.4 % (21.0-51.0); %Monocytes 10.1 % (0.0-10.0); %Neutrophils 79.1 % (42.0-75.0); Anisocytosis SLIGHT = 6-15 cells (100X) (0-5/hpf); MDiff Complete? YES; PLT Morphology Comment Appears Adequate; Polychromasia SLIGHT = 2-3 cells (100X) (0-2/hpf)
[2017-12-04 16:59] LABS: Bilirubin Negative (Negative); Blood, Urine Negative (Negative); Clarity CLOUDY (Clear); Glucose, Urine (Dipstick) Negative (Negative); Leukocyte Small (Negative); Nitrite Negative (Negative); Protein, Urine (Dipstick) Negative (Neg-Trace); Urobilinogen 0.2 mg/dL (0.2-1.0); pH, Urine 5.5 (5.0-9.0)
[2017-12-04 17:02] LABS: Bacteria/HPF Rare-Few HPF (None Seen); Hyaline Casts/LPF 7-10 HYALINE CAST LPF (0-3 Hyaline); Pathc Cast-AUWi Flag 0.67 (0-2.49)
[2017-12-04] MEDS ORDERED: Acetaminophen/Codeine 30-300mg Tablet ONE (19:00)
[2017-12-04] MEDS ORDERED: Ondansetron ODT 4 MG TAB PO PRN (21:40)
[2017-12-04] MEDS ORDERED: Acetaminophen 325 MG TAB PO PRN (21:40)
[2017-12-04] MEDS: Sodium Chloride 0.9% 1,000 ML IV SCH (23:01)
[2017-12-05] MEDS: HYDROcodone/Acetaminophen 5/325 mg Tablet PO PRN ×3 (03:24→19:29)
[2017-12-05] MEDS: Sodium Chloride 0.9% 1,000 ML IV SCH ×4 (05:10→19:07)
--- NOTE | 2017-12-05 06:22 | HP ---
CHIEF COMPLAINT: Nausea, vomiting, and diarrhea. HISTORY OF PRESENT ILLNESS: She is a 57-year-old woman with history of lung cancer, metastatic brain with recently taking chemo. She came in with the ED presence of diarrhea for 2 days and loss of rob etite. The diarrhea is loose watery, multiple times and she denies vomiting, but does have some naus ea. No fever. She got chemo 2 days ago. Oncologist, Dr. Gaspar. She also complains generalized b vince pain with low grade fever, no chills, no night sweats. PAST MEDICAL HISTORY: As mentioned, history of lung cancer; metastatic brain, chemo. MEDICATIONS TAKING AT HOME: Zocor 40 mg daily, Synthroid 125 mcg, Wellbutrin 100 mg daily. ALLERGIES: Allergies to AMIODARONE. PERSONAL HISTORY: Denies any drug use or any smoking history. No alcohol use. FAMILY HISTORY: Noncontributory. REVIEW OF SYSTEMS: Constitutional: She does have generalized weakness. Denies any fever and chills . Eyes: No blurry vision. ENT: No rhinorrhea. Cardiovascular: Denies any chest pain or short of breath, palpitations. Respiratory: Denies any cough, no short of breath. Gastrointestinal: She d oes have diarrhea, abdominal pain, no constipation. Nausea is there. No vomiting. Genitourinary: No dysuria, no frequency. Musculoskeletal: No pain. Skin: Negative for rash. Neurologic: Alert, denies any headache, no dizziness. PHYSICAL EXAMINATION: GENERAL: When examined, she is a middle-aged woman lying in the bed, not in distress, tachycardic. VITAL SIGNS: Pulse 95 to 100, blood pressure 113/46, respiratory rate 18, temperature 98.4. HEENT: On examination, head is atraumatic, normocephalic. Pupils are round and reactive. Ears, nos e, and throat normal. Tongue mucosa moist. Extraocular muscles intact. NECK: Supple, no JVD, no thyromegaly, no carotid bruit. CHEST: Normal vascular breathing, no added sound. CARDIOVASCULAR: S1 is audible. No S3, S4. ABDOMEN: Soft, bowel sounds audible, no organomegaly. EXTREMITIES: No pedal edema. No cyanosis or clubbing. NEUROLOGICAL: Alert and oriented x3, no focal deficit. Cranial nerves II-XII is normal. LABORATORY DATA: Shows WBC 7.5, hemoglobin 8.6, hematocrit 26.7, platelets 179, neutrophils 79.1. C hemistry shows sodium 134, potassium 4.5, chloride 105, bicarbonate 17, anion gap 17, BUN 40, creatin ine 0.7, glucose 64, lactic acid 1.2, calcium 9.2, AST 11, ALT less than 7, alkaline phosphatase 102. Serum total protein 6.5, albumin 3.3, globulin 3.2, albumin globulin ratio 1.0. Urine showed leuko esterase, 11-20 wbc. ASSESSMENT AND PLAN: 1. Nausea, vomiting, diarrhea most likely gastroenteritis, most likely secondary to chemotherapy. W e will give IV hydration, IV fluid and follow her closely. 2. Urinary tract infection with leukocytosis in the urine. Will continue IV Rocephin daily. We courtney l follow urine culture. 3. Hyponatremia that is mild. We continue IV fluid and monitor. 4. Lung cancer with metastatic brain. Prognosis guarded. She is FULL CODE. Has SCD, Lovenox.
[2017-12-05 06:51] LABS: #Basophils 0.1 thou/uL (0.0-0.2); #Eosinphils 0.1 thou/uL (0.0-0.7); #Lymphocytes 0.6 thou/uL (1.20-3.40); #Monocytes 0.8 thou/uL (0.11-0.59); #Neutrophils 4.7 thou/uL (1.40-6.50); %Eosinophils 1.3 % (0.0-10.0); %Lymphocytes 9.2 % (21.0-51.0); %Monocytes 12.2 % (0.0-10.0); %Neutrophils 76.3 % (42.0-75.0); Hemoglobin 7.6 g/dL (12.0-16.0); Mean Corpuscular HGB CONC 32.2 g/dL (32.0-36.0); Mean Corpuscular Hemoglobin 30.2 pg (27.0-31.0); Mean Corpuscular Volume 93.8 fl (81.0-99.0); Mean Platelet Volume 7.7 fL (7.4-10.4); Platelet Count 154 thou/uL (130-400); RBC Distribution Width 18.5 % (11.5-14.5); Red Blood Cell (RBC) Count 2.51 mill/uL (4.20-5.40); White Blood Cell (WBC) Count 6.2 thou/uL (4.8-10.8)
[2017-12-05 07:01] LABS: ALT (SGPT) Less than 7 U/L (8-55); AST (SGOT) 10 U/L (5-34); Albumin 2.9 g/dL (3.5-5.0); Alkaline Phosphatase 87 U/L (40-150); Anion Gap 11 mmol/L (10-20); BUN (Urea Nitrogen) 12 mg/dL (9.8-20.1); Bilirubin, Total 0.4 mg/dL (0.2-1.2); Calc. Creatinine Clearance 80 mL/min (70-130); Calcium 8.2 mg/dL (7.8-10.44); Carbon Dioxide 20 mmol/L (22-29); Chloride 108 mmol/L (98-107); Estimated GFR-MDRD 81; Globulin 2.6 g/dL (2.4-3.5); Glucose 66 mg/dL (70-105); Protein, Total 5.5 g/dL (6.0-8.3); Sodium 135 mmol/L (136-145)
[2017-12-05] MEDS: Enoxaparin Sodium 40 MG/0.4 ML SYRINGE SC SCH (08:15)
[2017-12-05] MEDS: Famotidine 20 MG TAB PO SCH ×2 (08:15→19:29)
--- NOTE | 2017-12-05 13:54 | PDOC.PN ---
- Subjective Encounter Start Date: 12/05/17 Encounter Start Time: 09:30 Patient is seen today, alert and oriented. She is feeling much beter, pt is Admitted with Intractable nausea and vomting along with Diarrhea, after her recent Chemotherapy. She is also noted to have Acute pyelonephrits - Objective Resuscitation Status: Resuscitation Status FULL:Full Resuscitation MAR Reviewed: Yes Vital Signs & Weight: Vital Signs (12 hours) Temp Pulse Resp BP Pulse Ox 12/05/17 11:47 98.4 F 101 H 18 98/63 97 12/05/17 08:06 98.2 F 88 18 102/55 L 96 12/05/17 08:00 98.2 F 88 18 96 12/05/17 04:00 98.3 F 100 18 96/56 L 95 Weight Admit Weight 135 lb 9.6 oz Weight 135 lb 9.6 oz I&O: 12/04/17 12/05/17 12/06/17 06:59 06:59 06:59 Intake Total 1872 Output Total 3 Balance 1869 Result Diagrams: 12/05/17 05:40 12/05/17 05:40 Additional Labs: Accuchecks 12/05/17 11:40 POC Glucose 149 H Radiology Reviewed by me: Yes Phys Exam - Physical Examination HEENT: PERRLA, moist MMs Neck: no nodes, no JVD Respiratory: no wheezing, no rales, clear to auscultation bilateral Cardiovascular: RRR, no significant murmur Gastrointestinal: soft, non-tender Musculoskeletal: no edema, pulses present Neurological: non-focal, normal sensation Lymphatic: no nodes Psychiatric: normal affect, A&O x 3 Skin: no rash, normal turgor Dx/Plan (1) Intractable nausea and vomiting Code(s): R11.2 - NAUSEA WITH VOMITING, UNSPECIFIED Status: Resolved (2) Diarrhea Code(s): R19.7 - DIARRHEA, UNSPECIFIED Status: Resolved (3) Severe dehydration Code(s): E86.0 - DEHYDRATION Status: Acute (4) CAD (coronary artery disease) Code(s): I25.10 - ATHSCL HEART DISEASE OF [place] CORONARY ARTERY W/O ANG PCTRS Status: Chronic Qualifiers: Coronary Disease-Associated Artery/Lesion type: bypass graft [place] vs. transplanted heart: [place] heart Associated angina: without angina Qualified Code(s): I25.810 - Atherosclerosis of coronary artery bypass graft(s) without angina pectoris (5) HTN (hypertension) Code(s): I10 - ESSENTIAL (PRIMARY) HYPERTENSION Status: Chronic Qualifiers: Hypertension type: essential hypertension Qualified Code(s): I10 - Essential (primary) hypertension (6) Acute UTI Code(s): N39.0 - URINARY TRACT INFECTION, SITE NOT SPECIFIED Status: Acute - Plan cont current plan of care, plan discussed w/ family, continue antibiotics, PT/OT , incentive spirometry, out of bed/ambulate, DVT proph w/lovenox * . Acute Intractabel nausea dn vomitng: This is resolved now, pt tolerated Fluids and break fast today, Will continue to Monitor. Acute UTI: Will continue on Rocephin, waiting for culture growth, if No growth, will continue for 3 days and stop. Hyponatremia: Mild, Resolved with IV fluids Now. Hypotension: Will continue with IV fluids, pt has low Blood presures, Will cotninue to hold her HTN meds. Severe Dehydration: Good urine output, No diarrhea now, Will continue with IV fluids, and encourage pt to drink more fluids. Loss of appetite: Will do apatite stimulant. DVT prophylaxis: loveonox 40mg sc daily. - Discharge Day Encounter end time: 10:00 Review of Systems - Review of Systems Constitutional: weakness Eyes: negative: Pain, Vision Change, Conjunctivae Inflammation, Eyelid Inflammation, Redness, Other ENT: negative: Ear Pain, Ear Discharge, Nose Pain, Nose Discharge, Nose Congestion, Mouth Pain, Mouth Swelling, Throat Pain, Throat Swelling, Other Respiratory: Cough. negative: Dry, Shortness of Breath, Hemoptysis, SOB with Excertion, Pleuritic Pain, Sputum, Wheezing Cardiovascular: negative: chest pain, palpitations, orthopnea, paroxysmal nocturnal dyspnea, edema, light headedness, other Gastrointestinal: negative: Nausea, Vomiting, Abdominal Pain, Diarrhea, Constipation, Melena, Hematochezia, Other Genitourinary: negative: Dysuria, Frequency, Incontinence, Hematuria, Retention , Other Musculoskeletal: negative: Neck Pain, Shoulder Pain, Arm Pain, Back Pain, Hand Pain, Leg Pain, Foot Pain, Other Skin: negative: Rash, Lesions, Isidro, Bruising, Other Neurological: negative: Weakness, Numbness, Incoordination, Change in Speech, Confusion, Seizures, Other - Medications/Allergies Allergies/Adverse Reactions: Allergies Allergy/AdvReac Type Severity Reaction Status Date / Time amiodarone Allergy Verified 12/04/17 21:33 iodine AdvReac Intermediate Emesis Verified 12/04/17 21:33 Medications: Current Medications Acetaminophen (Tylenol) 650 mg PO Q4H PRN PRN Reason: Headache/Fever or Pain Hydrocodone Bitart/Acetaminophen ([place] 5/325) 1 tab PO Q4H PRN PRN Reason: Moderate Pain (4-6) Last Admin: 12/05/17 03:24 Dose: 1 tab Enoxaparin Sodium (Lovenox) 40 mg SC 0900 [facility] Last Admin: 12/05/17 08:15 Dose: 40 mg Famotidine (Pepcid) 20 mg PO BID [facility] Last Admin: 12/05/17 08:15 Dose: 20 mg Sodium Chloride (Normal Saline 0.9%) 1,000 mls @ 125 mls/hr IV .Q8H [facility] Last Admin: 12/05/17 05:10 Dose: 1,000 mls Ondansetron HCl (Zofran Odt) 4 mg PO Q6H PRN PRN Reason: Nausea/Vomiting
[2017-12-05] MEDS: Megestrol Acetate 40 MG TAB PO SCH (19:29)
[2017-12-06] MEDS: Sodium Chloride 0.9% 1,000 ML IV SCH (04:50)
[2017-12-06] MEDS: HYDROcodone/Acetaminophen 5/325 mg Tablet PO PRN (06:02)
[2017-12-06] MEDS: Enoxaparin Sodium 40 MG/0.4 ML SYRINGE SC SCH (07:57)
[2017-12-06] MEDS: Megestrol Acetate 40 MG TAB PO SCH (07:58)
[2017-12-06] MEDS: Famotidine 20 MG TAB PO SCH (07:58)
[2017-12-06 07:59] VITALS: BP 117/68; TEMP 98.6
--- NOTE | 2017-12-06 14:36 | DIS ---
DATE OF ADMISSION: 12/04/2017 DATE OF DISCHARGE: 12/06/2017 ADMITTING DIAGNOSIS: Acute intractable nausea and vomiting. DISCHARGE DIAGNOSIS: Acute intractable nausea and vomiting, and diarrhea. SECONDARY DIAGNOSES: 1. Acute urinary tract infection. 2. Severe dehydration. 3. Hyponatremia. 4. History of lung cancer with metastatic brain, on chemotherapy. HISTORY OF PRESENT ILLNESS AND HOSPITAL COURSE: In brief, this is a 57-year-old white female with a known history of lung cancer, metastatic liver disease, metastatic lung disease, metastasis to the br ain and to the liver. The patient was in her usual state of health until 2 days ago she started noti cing loss of appetite and having diarrhea of loose watery with multiple times associated with vomitin g and nausea. Patient was unable to keep anything down and Dr. Gaspar suggested the patient go to [facility] and she was admitted for chemotherapy-induced nausea and vomiting. Initially, her diarrhea was checked for stool parasites, which was negative. She had a UTI which was mildly positive and so she was started on Rocephin 1 gram daily, but urine culture did not grow after 2 days. The patient also had low sodium levels which were also corrected by IV fluids. The patient received aggressive IV fl uid hydration and she was able to walk pretty well with the physical therapy. The patient has loss o f appetite, so she requested appetite stimulants. The patient was started on Megace 40 mg p.o. b.i.d ., which she tolerated very well. Her appetite did improve and she was able to eat better lunch the following day. The patient is discharged home to follow up with her primary care physician and with Dr. Gaspar in 1-2 weeks. The patient was stable at discharge. PHYSICAL EXAMINATION: VITAL SIGNS: Blood pressures are 117/68, heart rate is 87, respirations 20, saturation 98%. GENERAL: The patient is moderately built and moderately nourished. She does not appear to be in acu te distress at this time. She is alert, oriented x3. HEENT: Atraumatic, normocephalic. PERRLA. Extraocular movements intact. Oral mucosa is pink and m oist. CARDIOVASCULAR: S1, S2 normal. No murmurs, rubs or gallops. LUNGS: Bilateral air entry was equal. No wheezing, no crackles. ABDOMEN: Soft, nontender. No guarding, no rebound tenderness. Bowel sounds normal. MUSCULOSKELETAL: No calf tenderness. No pedal edema. No joint tenderness, no joint swelling. DISCHARGE MEDICATIONS: 1. Bupropion 150 mg p.o. daily. 2. Levothyroxine 125 mg p.o. daily. 3. Potassium gluconate daily. 4. Simvastatin 40 mg p.o. daily. 5. Megace 40 mg p.o. b.i.d. DISCHARGE INSTRUCTIONS: Continue activity as tolerated. Advised to follow up with primary care phys bentley in 1-2 weeks. Advised to follow up with Dr. Gaspar in 1 week. Continue with a general diet a nd advised the patient can follow up with outpatient rehabilitation if her nutrition improves and her appetite has improved. I spent 35 minutes with this patient.
== END 2017-12-06 15:38 | disposition home or self-care (01) ==
LOC: ERS 10:16 → T4-B 17:33
PROVIDERS: ADMIT Internal Medicine; ATTEND Internal Medicine
DX: R11.2 Nausea with vomiting, unspecified (principal); R19.7 Diarrhea, unspecified; N39.0 Urinary tract infection, site not specified; E86.0 Dehydration; E87.1 Hypo-osmolality and hyponatremia; C34.90 Malignant neoplasm of unspecified part of unspecified bronchus or lung; C79.31 Secondary malignant neoplasm of brain; C78.00 Secondary malignant neoplasm of unspecified lung; C78.7 Secondary malignant neoplasm of liver and intrahepatic bile duct; F32.9 Major depressive disorder, single episode, unspecified; I10 Essential (primary) hypertension; I25.10 Atherosclerotic heart disease of native coronary artery without angina pectoris; Z79.818 Long term (current) use of other agents affecting estrogen receptors and estrogen levels; Z79.899 Other long term (current) drug therapy; Z91.041 Radiographic dye allergy status; Z88.8 Allergy status to other drugs, medicaments and biological substances; Z95.1 Presence of aortocoronary bypass graft; Z90.710 Acquired absence of both cervix and uterus
CPT/HCPCS: 36415; 36416; 80053; 81003; 81015; 83605; 85025; 87086; 96361; 96372; 96374; G0378; J0696; J1650; S0179

== ENCOUNTER 2017-12-13 10:34 | Day surgery (SDC) | payer OTHER ==
[2017-12-13] MEDS ORDERED: Sodium Chloride 0.9% 20 ML ONE (10:54)
[2017-12-13] MEDS ORDERED: Pembrolizumab 200 MG in Sodium Chloride 0.9% 250 ML 250 ML IV SCH (11:00)
== END 2017-12-13 13:49 | disposition home or self-care (01) ==
LOC: ONC/OP 10:34
PROVIDERS: ATTEND Internal Medicine Hematology & Oncology
DX: Z51.11 Encounter for antineoplastic chemotherapy (principal); C34.91 Malignant neoplasm of unspecified part of right bronchus or lung; C79.31 Secondary malignant neoplasm of brain; Z88.8 Allergy status to other drugs, medicaments and biological substances; Z91.041 Radiographic dye allergy status; Z79.899 Other long term (current) drug therapy
CPT/HCPCS: 36415; 80053; 82248; 83615; 84100; 84443; 84550; 96413; A4216; J1642; J7050; J9271

== ENCOUNTER 2018-01-03 11:17 | Day surgery (SDC) | payer OTHER ==
[2018-01-03] MEDS ORDERED: Sodium Chloride 0.9% 20 ML ONE (11:29)
[2018-01-03] MEDS ORDERED: Pembrolizumab 200 MG in Sodium Chloride 0.9% 250 ML 250 ML IV SCH (11:30)
[2018-01-03 12:36] VITALS: BP 111/51; TEMP 97.4
== END 2018-01-03 16:53 | disposition home or self-care (01) ==
LOC: ONC/OP 11:17
PROVIDERS: ATTEND Internal Medicine Hematology & Oncology
DX: Z51.11 Encounter for antineoplastic chemotherapy (principal); C34.91 Malignant neoplasm of unspecified part of right bronchus or lung; Z91.041 Radiographic dye allergy status; Z88.8 Allergy status to other drugs, medicaments and biological substances
CPT/HCPCS: 36415; 80053; 82248; 83615; 84100; 84443; 84550; 96413; A4216; J1642; J7050; J9271

== ENCOUNTER 2018-01-04 11:12 | Outpatient (CLI) | payer OTHER ==
[2018-01-04] MEDS ORDERED: Gadobenate Dimeglumine 529 MG/1 ML (20ML VIAL) ONE (13:32)
--- NOTE | 2018-01-04 13:52 | MRI ---
BRAIN MRI WITH AND WITHOUT CONTRAST: Date: 01/04/18 COMPARISON: 11/14/17. HISTORY: Brain metastasis. Primary lung cancer. Status post whole brain radiation treatment. Exam requested fo r restaging. TECHNIQUE: Brain MRI is performed with and without intravenous Gadolinium administration. Multisequential, multi planar imaging is performed. FINDINGS: Stable hemosiderin deposition along the left parietal lobe near the skull vertex, as well as along th e left frontal lobe, as well as the overlying extra-axial space. There is postsurgical change involvi ng the left frontal and left parietal craniotomy defect. On the axial T2 FLAIR sequence, there is sta ble FLAIR hyperintensity involving bilateral posterior centrum semiovale and coronal radiata. There i s stable FLAIR hyperintensity along the left frontal lobe, right temporal lobe, as well as the anteri or and posterior corpus callosum. There is adequate aeration of the paranasal sinuses. Partial opacification of the mastoid air cells. Central arterial flow-voids are maintained. Absent restricted diffusion. Postcontrast images demonstrate enhancement along the left frontal lobe measuring 3.0 x 2.3 cm (previ ously measuring 2.0 x 2.8 cm). There is enhancement along the right temporal lobe measuring 0.8 x 0.9 cm (previously measuring 0.7 x 1.0 cm). There is enhancement superior to the left and right lateral ventricle measuring 0.7 x 1.0 and 0.7 x 1 .0 cm, respectively. These lesions previously measured approximately 1.0 cm as well. Questionable areas of subtle enhancement involving the left and right occipital lobe measuring approx imately 0.5 cm. Findings may be artifactual. Areas of questionable enhancement are difficult to sedrick borate on the additional sequences. IMPRESSION: Redemonstration of multifocal intracranial metastasis with associated enhancement. When compared to t he previous examination, there has been no appreciable reduction in size. POS: [facility]
== END 2018-01-04 11:13 | disposition home or self-care (01) ==
LOC: MRI 11:12
PROVIDERS: ATTEND Radiology Radiation Oncology
DX: C34.90 Malignant neoplasm of unspecified part of unspecified bronchus or lung (principal); C79.31 Secondary malignant neoplasm of brain
CPT/HCPCS: 70553; A9579

== ENCOUNTER 2018-01-08 16:40 | Outpatient (CLI) | payer OTHER ==
--- NOTE | 2018-01-08 16:59 | RAD ---
RIGHT SHOULDER TWO VIEWS: History: Lung cancer. Concern for bone mets. Right shoulder pain. FINDINGS/IMPRESSION: No fracture or dislocation is seen. There is a focal lucency in the acromion suspicious for a lytic m etastasis. Further evaluation with CT or MRI would be helpful. POS: [place]
--- NOTE | 2018-01-08 17:00 | RAD ---
RIGHT HUMERUS TWO VIEWS: History: Right arm pain, concern for bone mets. Lung cancer. FINDINGS/IMPRESSION: The right humerus is intact. No osseous or blastic lesions are seen. POS: [facility]
== END 2018-01-08 16:41 | disposition home or self-care (01) ==
LOC: RAD 16:40
PROVIDERS: ATTEND Radiology Radiation Oncology
DX: C34.90 Malignant neoplasm of unspecified part of unspecified bronchus or lung (principal); M25.511 Pain in right shoulder; C79.31 Secondary malignant neoplasm of brain

== ENCOUNTER 2018-01-10 17:06 | Observation (INO) | payer OTHER ==
[2018-01-10 17:36] LABS: Hemoglobin 9.5 g/dL (12.0-16.0); Mean Corpuscular HGB CONC 30.3 g/dL (32.0-36.0); Mean Corpuscular Hemoglobin 29.7 pg (27.0-31.0); Mean Corpuscular Volume 97.9 fl (81.0-99.0); Mean Platelet Volume 7.8 fL (7.4-10.4); Platelet Count 105 thou/uL (130-400); RBC Distribution Width 13.5 % (11.5-14.5); Red Blood Cell (RBC) Count 3.21 mill/uL (4.20-5.40); White Blood Cell (WBC) Count 4.3 thou/uL (4.8-10.8)
--- NOTE | 2018-01-10 17:37 | RAD ---
PORTABLE AP CHEST X-RAY 01/10/18 HISTORY: Altered mental status. Tachypnea and tachycardia. Patient with history of cancer and on chemotherapy treatment. COMPARISON: 11/18/17. FINDINGS: A CT injectable right subclavian Mediport catheter remains in place and unchanged in position. Multip le metallic wires again overlie the mediastinum. The large left hilar mass with spiculated margins is again present and similar to the prior exam. Again noted is a moderate sized left pleural effusion a nd associated passive atelectasis. Linear density at the right lung base which may be related to atel ectasis. IMPRESSION: 1. Stable large left hilar mass with spiculated margins peripherally, overall similar to the julio or exam. 2. Stable moderate sized left pleural effusion and atelectasis. POS: [facility]
[2018-01-10 17:41] LABS: INR-International Normal Ratio 1.1
[2018-01-10 18:01] LABS: CKMB 0.9 ng/mL (0-6.6)
--- NOTE | 2018-01-10 18:04 | CT ---
NONCONTRAST CT HEAD 01/10/18 HISTORY: Mental status change. COMPARISON: MRI of brain on 01/04/18. FINDINGS: There are areas of vasogenic edema seen within the left anterior frontal lobe as well as in each matt etal lobe adjacent to the posterior body of each lateral ventricle also noted on the MRI examination on 01/04/18. The degree of vasogenic edema is not significantly changed from prior exam. There is increased densit y seen in the region of the area of vasogenic edema in the left anterior frontal lobe which correspon ds to the location of the enhancing mass seen on the MRI brain. Craniotomy defect left anterolateral frontal region is again present. There is very tiny subdural collection under the craniotomy flap whi ch was also seen on the MRI examination. There is no evidence of an intraparenchymal or extra-axial hemorrhage and there is no evidence of an acute infarction. There is mild effacement of the most anterolateral aspect of the anterior horn left lateral ventricle. However, this is a stable finding. There is a small focal area of encephalomalaci a in the high left parietal region also seen on recent CT scan exam. No other interval change. IMPRESSION: 1. Vasogenic edema in the left anterior frontal lobe and the biparietal lobes again consistent w ith multifocal intracranial metastatic disease. Assessment of metastatic lesions on this nonenhanced CT scan examination is difficult. There is no midline shift seen, and no intraparenchymal or extra-ax ial hemorrhage is identified. There is no acute infarction seen. 2. Sinus disease involving a posterior left ethmoidal air cell. POS: [facility]
[2018-01-10 18:05] LABS: #Eosinphils 0.1 thou/uL (0.0-0.7); #Lymphocytes 0.6 thou/uL (1.20-3.40); #Monocytes 0.3 thou/uL (0.11-0.59); #Neutrophils 3.2 thou/uL (1.40-6.50); %Eosinophils 2.3 % (0.0-10.0); %Lymphocytes 14.8 % (21.0-51.0); %Monocytes 7.3 % (0.0-10.0); %Neutrophils 75.7 % (42.0-75.0); ALT (SGPT) Less than 7 U/L (8-55); AST (SGOT) 13 U/L (5-34); Albumin 3.4 g/dL (3.5-5.0); Alkaline Phosphatase 115 U/L (40-150); Anion Gap 9 mmol/L (10-20); BUN (Urea Nitrogen) 13 mg/dL (9.8-20.1); Bilirubin, Total 0.3 mg/dL (0.2-1.2); Calc. Creatinine Clearance 0 mL/min (70-130); Calcium 8.6 mg/dL (7.8-10.44); Carbon Dioxide 28 mmol/L (22-29); Chloride 102 mmol/L (98-107); Estimated GFR-MDRD 90; Globulin 3.2 g/dL (2.4-3.5); Glucose 89 mg/dL (70-105); Hypochromia SLIGHT = 6-15 cells (100X) (0-5/hpf); MDiff Complete? YES; PLT Morphology Comment Appears Decreased; Potassium 4.4 mmol/L (3.5-5.1); Protein, Total 6.6 g/dL (6.0-8.3); Sodium 135 mmol/L (136-145)
[2018-01-10] MEDS ORDERED: cefTRIAXone\\ROCEPHIN 2 GM in Sodium Chloride 0.9% 100 ML IVPB SCH (19:30)
[2018-01-10 21:03] LABS: Bilirubin Negative (Negative); Blood, Urine Negative (Negative); Clarity CLOUDY (Clear); Glucose, Urine (Dipstick) Negative (Negative); Leukocyte Large (Negative); Nitrite Negative (Negative); Protein, Urine (Dipstick) Negative (Neg-Trace); Specific Gravity, Urine 1.009 (1.002-1.036); Urobilinogen 0.2 mg/dL (0.2-1.0)
[2018-01-10 21:05] LABS: Bacteria/HPF 1+ HPF (None Seen); Hyaline Casts/LPF 0-3 HYALINE CAST LPF (0-3 Hyaline); Pathc Cast-AUWi Flag 0.13 (0-2.49)
[2018-01-10] MEDS ORDERED: Ondansetron HCl/PF 4 MG/2 ML Vial IVP PRN (21:53)
[2018-01-10] MEDS ORDERED: Ondansetron ODT 4 MG TAB SL PRN (21:53)
[2018-01-10] MEDS ORDERED: Acetaminophen 325 MG TAB PO PRN (21:53)
[2018-01-10 22:56] VITALS: BMI 19.4
[2018-01-11] MEDS ORDERED: Sodium Chloride 0.9% 1,000 ML IV SCH (00:45)
[2018-01-11] MEDS ORDERED: Acetaminophen/Codeine 30-300mg Tablet PO SCH (00:45)
[2018-01-11] MEDS ORDERED: Ondansetron HCl/PF 4 MG/2 ML Vial IVP PRN (00:59)
[2018-01-11] MEDS ORDERED: Bisacodyl 5 MG TAB PO PRN (00:59)
[2018-01-11] MEDS ORDERED: Acetaminophen 325 MG TAB PO PRN (00:59)
[2018-01-11] MEDS ORDERED: Acetaminophen 650 MG Suppository PR PRN (00:59)
[2018-01-11] MEDS ORDERED: Ondansetron ODT 8 MG TAB PO PRN (01:01)
[2018-01-11] MEDS ORDERED: Prochlorperazine Maleate 5 MG TAB PO PRN (01:01)
[2018-01-11] MEDS ORDERED: Acetaminophen/Codeine 30-300mg Tablet PO PRN (01:01)
[2018-01-11] MEDS: Sodium Chloride 0.9% 1,000 ML IV SCH ×2 (02:12→11:37)
--- NOTE | 2018-01-11 02:12 | HP ---
PRIMARY CARE PHYSICIAN: Blaze Sy M.D. CHIEF COMPLAINT: Loss of consciousness. HISTORY OF PRESENT ILLNESS: Ms. yL is a pleasant 58-year-old lady who was seen at [facility] on 01/11/2018. She was reportedly found unresponsive by her . She could have lost consciousness for approxim ately 10 minutes. Her went to check mail and when he returned she was on the floor. No hist ory of tonic-clonic activity. No history of urinary or fecal incontinence. She was still unresponsi ve when EMS went to her house. On the way to the emergency room, she became more responsive. She denies any chest pain or shortness of breath. She denies any palpitations. She denies any light headedness. She reports feeling unwell, but is unable to elaborate. She denies any previous episode s of syncope. She denies any urinary symptoms. REVIEW OF SYSTEMS: The following complete review of systems was negative, unless otherwise mentioned in the HPI or below: Constitutional: Weight loss or gain, ability to conduct usual activities. Skin: Rash, itching. Eyes: Double vision, pain. ENT/Mouth: Nose bleeding, neck stiffness, pain, tenderness. Cardiovascular: Palpitations, dyspnea on exertion, orthopnea. Respiratory: Shortness of breath, wheezing, cough, hemoptysis, fever or night sweats. Gastrointestinal: Poor appetite, abdominal pain, heartburn, nausea, vomiting, constipation, or diarr hea. Genitourinary: Urgency, frequency, dysuria, nocturia. Musculoskeletal: Pain, swelling. Neurologic/Psychiatric: Anxiety, depression. Allergy/Immunologic: Skin rash, bleeding tendency. PAST MEDICAL HISTORY: Significant for lung cancer with metastases to brain, last chemotherapy 2-3 we eks ago; coronary artery disease; dyslipidemia and hypothyroidism. PAST SURGICAL HISTORY: Significant for coronary artery bypass graft in 2012, brain tumor removal, hy sterectomy, chemotherapy port placement. PSYCHIATRIC HISTORY: Depression. SOCIAL HISTORY: The patient drinks alcohol occasionally. She smokes 1 pack of cigarettes a day. Sh misti denies any recreational drug use. FAMILY HISTORY: No family history of premature coronary artery disease. ALLERGIES: AMIODARONE and IODINE. CURRENT MEDICATIONS: These include Tylenol No. 4 p.r.n., Wellbutrin-XL 150 mg daily, docusate 50 mg daily as needed, Synthroid 125 mcg daily, Megace 40 mg 2 times a day, Zofran 8 mg 3 times a day as ne eded, potassium gluconate 595 mg daily, Compazine 10 mg every 6 hours as needed, Zocor 40 mg daily. It appears that she is also taking rivaroxaban 20 mg daily, but is unable to tell me why she is nikolai cavanaugh. It is also not clear if she is still taking rivaroxaban. This will need to be clarified when her comes by in the morning. PHYSICAL EXAMINATION: GENERAL: On examination, Ms. Ly is sleepy, but arousable, not in acute distress. VITAL SIGNS: Blood pressure is 107/54, pulse is 102. She is breathing at rate of 22 and saturating 96% on room air. She is afebrile. EYES: No scleral icterus. No conjunctival pallor. ENT: Dry mucosal membranes, no oropharyngeal erythema or exudates. NECK: Supple, nontender, trachea midline. RESPIRATORY: Accessory muscles of breathing are not active. Chest wall movements are symmetric bila terally. Lungs are clear to auscultation, without wheeze, rhonchi or crepitations. CARDIOVASCULAR: S1 and S2 are heard, regular. Peripheral pulses are palpable. No carotid bruit, no pericardial rub. ABDOMEN: Soft, nontender, bowel sounds heard, no hepatomegaly, no splenomegaly. NEUROLOGIC: Cranial nerves II-XII are intact. Deep tendon reflexes are 2+. SKIN: No rashes or subcutaneous nodules. MUSCULOSKELETAL: Power is 5/5 in all 4 extremities. PSYCHIATRIC: The patient appears tired, oriented to person, place, and time. LABORATORY DATA AND IMAGING: Ms. Ly's labs and investigations were reviewed. I reviewed her e lectrocardiogram, which shows sinus tachycardia with low voltage QRS complexes. I also reviewed her chest x-ray, which does not show any pulmonary infiltrates. She has a left-sided pleural effusion an d a large left hilar mass. This has not changed since previous chest x-ray in 10/2017. She also had noncontrast CT scan of the brain, which showed vasogenic edema in the left anterior frontal lobe and the biparietal lobes, also seen on prior imaging. She also has sinus disease. She has pancytopenia , with a white count of 4300, hemoglobin 9.5, platelet count 105,000. She is not neutropenic. INR i s 1.1. Sodium is decreased at 135. Creatinine is normal. Liver profile is unremarkable. Troponin I is normal. Urinalysis is positive for large amount of leukocyte esterase. ASSESSMENT AND PLAN: Ms. Ly is a pleasant 58-year-old lady who was seen at [facility] on 01/11/2018. Her problem list includes: 1. Syncope: The etiology is unclear. She will be admitted to the hospital for telemetry monitoring . We will also request 2D echocardiogram to rule out pericardiac causes, given her history of malign jevon and low voltage QRS complexes seen on electrocardiogram. It is also possible that her syncope i s secondary to infection. 2. Sepsis: Her presentation is consistent with sepsis. She will be admitted to the hospital for fu rther management, including intravenous fluids and antibiotics. 3. Urinary tract infection. Continue ceftriaxone, follow cultures. 4. Lung cancer: Her oncologist has been consulted by the emergency room physician. 5. Rule out influenza with screen. 6. Coronary artery disease. Appears to be stable. 7. Hypothyroidism: Continue Synthroid. Hold rivaroxaban until dose and reason for use are clarified in the morning. Many thanks for allowing me to participate in your patient's care. Please feel free to contact me wi th any questions or concerns. LEVEL OF RISK: High. LEVEL OF COMPLEXITY: High.
[2018-01-11] MEDS: Levothyroxine Sodium 125 MCG TAB PO SCH (04:21)
[2018-01-11 05:32] LABS: #Eosinphils 0.1 thou/uL (0.0-0.7); #Lymphocytes 0.7 thou/uL (1.20-3.40); #Monocytes 0.3 thou/uL (0.11-0.59); #Neutrophils 2.5 thou/uL (1.40-6.50); %Basophils 0.6 % (0.0-1.0); %Eosinophils 2.2 % (0.0-10.0); %Lymphocytes 19.6 % (21.0-51.0); %Monocytes 7.8 % (0.0-10.0); %Neutrophils 69.7 % (42.0-75.0); Hemoglobin 8.4 g/dL (12.0-16.0); Mean Corpuscular HGB CONC 30.9 g/dL (32.0-36.0); Mean Corpuscular Hemoglobin 29.9 pg (27.0-31.0); Mean Corpuscular Volume 96.6 fl (81.0-99.0); Platelet Count 89 thou/uL (130-400); RBC Distribution Width 13.4 % (11.5-14.5); White Blood Cell (WBC) Count 3.6 thou/uL (4.8-10.8)
[2018-01-11 05:39] LABS: Anion Gap 8 mmol/L (10-20); BUN (Urea Nitrogen) 9 mg/dL (9.8-20.1); Calc. Creatinine Clearance 86 mL/min (70-130); Calcium 8.3 mg/dL (7.8-10.44); Carbon Dioxide 25 mmol/L (22-29); Chloride 106 mmol/L (98-107); Estimated GFR-MDRD Greater than 90; Glucose 71 mg/dL (70-105); Potassium 4.1 mmol/L (3.5-5.1); Sodium 135 mmol/L (136-145)
[2018-01-11] MEDS: Atorvastatin Calcium 20 MG TAB PO SCH (09:07)
[2018-01-11] MEDS: Bupropion 150 MG XL TAB PO SCH (09:07)
[2018-01-11] MEDS: Potassium Chloride 8 MEQ TAB PO SCH (09:08)
--- NOTE | 2018-01-11 11:41 | PDOC.PN ---
- Subjective Encounter Start Date: 01/11/18 Encounter Start Time: 09:15 Subjective: awake, responds to verbal stimuli - Objective MAR Reviewed: Yes Vital Signs & Weight: Vital Signs (12 hours) Temp Pulse Resp BP BP BP Pulse Ox 01/11/18 08:00 99.0 F 93 22 H 101/50 L 93 L 01/11/18 04:25 98.9 F 116 H 21 H 101/52 L 98/54 L 98/50 L 93 L 01/11/18 00:03 98.2 F 102 H 22 H 107/54 L 96 Weight Weight 131 lb 8 oz I&O: 01/10/18 01/11/18 01/12/18 06:59 06:59 06:59 Intake Total 652 Balance 652 Result Diagrams: 01/11/18 04:25 01/11/18 04:25 Phys Exam - Physical Examination HEENT: PERRLA, moist MMs Neck: no JVD Respiratory: no wheezing, no rales Cardiovascular: RRR, no significant murmur Gastrointestinal: soft, non-tender, positive bowel sounds Musculoskeletal: no edema, pulses present Neurological: non-focal, moves all 4 limbs Dx/Plan (1) UTI (urinary tract infection) Status: Acute Qualifiers: Urinary tract infection type: acute cystitis Hematuria presence: without hematuria Qualified Code(s): N30.00 - Acute cystitis without hematuria (2) CAD (coronary artery disease) Code(s): I25.10 - ATHSCL HEART DISEASE OF [place] CORONARY ARTERY W/O ANG PCTRS Status: Chronic Qualifiers: Coronary Disease-Associated Artery/Lesion type: bypass graft [place] vs. transplanted heart: [place] heart Associated angina: without angina Qualified Code(s): I25.810 - Atherosclerosis of coronary artery bypass graft(s) without angina pectoris (3) COPD (chronic obstructive pulmonary disease) Status: Chronic Qualifiers: COPD type: emphysema Emphysema type: unspecified Qualified Code(s): J43.9 - Emphysema, unspecified (4) H/O: lung cancer Code(s): Z85.118 - PERSONAL HISTORY OF MALIGNANT NEOPLASM OF BRONCHUS AND LUNG Status: Chronic Comment: has multiple mets (5) HTN (hypertension) Code(s): I10 - ESSENTIAL (PRIMARY) HYPERTENSION Status: Chronic Qualifiers: Hypertension type: essential hypertension Qualified Code(s): I10 - Essential (primary) hypertension (6) Hypothyroidism Code(s): E03.9 - HYPOTHYROIDISM, UNSPECIFIED Status: Chronic Qualifiers: Hypothyroidism type: unspecified Qualified Code(s): E03.9 - Hypothyroidism , unspecified (7) LV (left ventricular) mural thrombus Code(s): KXW1430 - Status: Acute - Plan is awake and at her baseline cognitive status now -: d/w and son at bedside -: discussed about xarelto for lv thrombus and the risk of bleeding specially -: from brain mets. They would want a trial of it and see how she does. -: D/w and jay Gaspar dc home if family is comfortable taking her * . Review of Systems - Medications/Allergies Allergies/Adverse Reactions: Allergies Allergy/AdvReac Type Severity Reaction Status Date / Time amiodarone Allergy Verified 12/04/17 21:33 iodine AdvReac Intermediate Emesis Verified 12/04/17 21:33 Medications: Current Medications Acetaminophen (Tylenol) 650 mg PO Q4H PRN PRN Reason: Headache/Fever or Pain Acetaminophen (Tylenol) 650 mg IA Q4H PRN PRN Reason: Headache/Fever or Pain Acetaminophen/Codeine Phosphate (Tylenol #3) 2 tab PO Q6H PRN PRN Reason: Pain Atorvastatin Calcium (Lipitor) 20 mg PO DAILY [facility] Last Admin: 01/11/18 09:07 Dose: 20 mg Bisacodyl (Dulcolax) 10 mg PO DAILYPRN PRN PRN Reason: Constipation Bupropion HCl (Wellbutrin Xl) 150 mg PO QAM [facility] Last Admin: 01/11/18 09:07 Dose: 150 mg Sodium Chloride (Normal Saline 0.9%) 1,000 mls @ 100 mls/hr IV .Q10H [facility] Last Admin: 01/11/18 11:37 Dose: 1,000 mls Ceftriaxone Sodium 1 gm/ (Syringe) 10 mls @ 120 mls/hr IVPB 2000 [facility] Levothyroxine Sodium (Synthroid) 125 mcg PO 0600 [facility] Last Admin: 01/11/18 04:21 Dose: 125 mcg Ondansetron HCl (Zofran) 4 mg IVP Q6H PRN PRN Reason: Nausea/Vomiting Ondansetron HCl (Zofran Odt) 8 mg PO TID PRN PRN Reason: Nausea/Vomiting Potassium Chloride (Slow-K 8 Meq) 8 meq PO QAM-WM [facility] Last Admin: 01/11/18 09:08 Dose: 8 meq Prochlorperazine Maleate (Compazine) 10 mg PO Q6H PRN PRN Reason: Nausea
[2018-01-11] MEDS ORDERED: Rivaroxaban 10 MG TAB PO SCH ×2 (13:00→18:00)
--- NOTE | 2018-01-11 15:28 | CON ---
DATE OF CONSULTATION: 01/11/2018 REASON FOR CONSULTATION: Lung cancer. HISTORY OF PRESENT ILLNESS: Ms. Ly is a 58-year-old female well known to our clinic, who was o riginally diagnosed with stage IV non-small cell lung cancer in 2010. She has undergone multiple marni atments. Since that time, she did have brain met at the time of diagnosis. 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 She has been in remission until 2017 when she had new brain mets consistent with adenocarci noma. She underwent whole brain radiation at that time and she started chemotherapy with carboplatin and Alimta. She has struggled with poor appetite and weight loss during treatment. She was switche d to Keytruda in November and has received 2 cycles. She presented to the emergency room yesterday wi th a syncopal episode. She was found face down on the front porch. Brain CT in the ER showed the kn own metastatic lesions. She has recently seen Dr. Javier, her coroner, an echo showed LV thrombus . She was to start Xarelto, but had not received the medication prior to this admission. PAST MEDICAL HISTORY: 1. 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 2. LV thrombus, recently diagnosed. 3. Hypothyroidism. 4. Coronary artery disease. PAST SURGICAL HISTORY: 1. MediPort placement. 2. CABG in 2013. ALLERGIES: IODINE. HOME MEDICATIONS: 1. Tylenol #3 p.r.n. pain. 2. Wellbutrin-XL 150 mg daily. 3. Synthroid 125 mcg daily. 4. Megace 40 mg b.i.d. 5. Zofran p.r.n. 6. Potassium daily. 7. Zocor 40 mg daily. FAMILY HISTORY: Noncontributory. SOCIAL HISTORY: She is and lives with her and son, current everyday smoker. No alco hol or illicit drug use. REVIEW OF SYSTEMS: Constitutional: Denies fever, chills, or night sweats. Positive for weight loss . Eyes: No blurred or double vision. ENT: No pain, hoarseness, sore throat, or dysphagia. Cardio vascular: No chest pain, palpitations. Positive for syncope. Respiratory: No shortness of breath, dyspnea on exertion, or orthopnea. Gastrointestinal: No nausea, vomiting, diarrhea, constipation, or abdominal pain. Genitourinary: No dysuria or hematuria. Musculoskeletal: Positive for right sh oulder pain. Skin: No rash. Hematologic: No bruising, bleeding, or clotting. Neurologic: Positi ve for weakness. No headache, numbness, tingling, or seizure activity. Psychiatric: Positive for a nxiety and depression. PHYSICAL EXAMINATION: VITAL SIGNS: Temperature is 98.6, pulse is 94, respiratory rate 22, BP is 104/57. She is 95% on kayy m air. GENERAL: This is a chronically ill-appearing female in no acute distress. HEENT: Normocephalic, atraumatic. Pupils are equal and reactive to light. NECK: Supple. CARDIOVASCULAR: Regular rate and rhythm. LUNGS: Wheezing throughout. ABDOMEN: Soft, nontender. Bowel sounds are positive. EXTREMITIES: No clubbing, cyanosis, or edema. SKIN: No rash. HEMATOLOGIC: No petechia or purpura. NEUROLOGICAL: Nonfocal. PSYCHIATRIC: The patient is alert and oriented and appropriate. PERTINENT LABORATORY AND X-RAYS: Current WBCs are 3.6, hemoglobin 8.4, hematocrit 27.1, platelet cou nt is 89,000, 69% neutrophils, 20% lymphocytes. PT is 14, INR is 1.1. Sodium is 135, potassium 4.1, chloride 106, CO2 is 25, BUN is 9, creatinine 0.66, calcium is 8.3, magnesium is 2.0, total bilirubi n is 0.3, AST 13, ALT is less than 7. Alkaline phosphatase is 115, creatine kinase is 41, CK-MB 0.9. Troponin is 0.020. Serum total protein is 6.6, albumin 3.4, globulin 3.2. Urine had 1+ bacteria, large leukocyte esterase, negative nitrites. Radiology per HPI. ASSESSMENT: 1. Stage IV non-small cell lung cancer status post chemoradiation, now on immunotherapy. 2. Syncopal episode. 3. Chronic pancytopenia secondary to #1. 4. Urinary tract infection. DISCUSSION: The patient would like to be a DNR. We discussed continuing treatment. However, the pa hattie is extremely weak and not eating much. She will work on increasing her calorie intake over the next few weeks and will be seen in the office. We did discuss possible palliative care hospice refe rral. Family would like to discuss that prior to discharge. She has been started on anticoagulation for her LV thrombus which will continue at home. Thank you for the consult.
[2018-01-11] MEDS ORDERED: Sodium Chloride 0.9% 500 ML IV SCH (18:30)
[2018-01-11] MEDS ORDERED: cefTRIAXone\\ROCEPHIN 1 GM in Syringe 10 ML IVPB SCH (20:00)
[2018-01-12] MEDS: Levothyroxine Sodium 125 MCG TAB PO SCH (06:25)
[2018-01-12 07:43] VITALS: BP 103/54; TEMP 98
[2018-01-12] MEDS: Bupropion 150 MG XL TAB PO SCH (08:49)
[2018-01-12] MEDS: Atorvastatin Calcium 20 MG TAB PO SCH (08:50)
[2018-01-12] MEDS: Potassium Chloride 8 MEQ TAB PO SCH (08:50)
--- NOTE | 2018-01-12 11:56 | PDOC.PN ---
- Subjective Encounter Start Date: 01/12/18 Encounter Start Time: 09:30 Subjective: is amb in room, no sob, feels better, wants to go home - Objective Resuscitation Status: Resuscitation Status DNR:Do Not Resuscitate MAR Reviewed: Yes Vital Signs & Weight: Vital Signs (12 hours) Temp Pulse Resp BP BP BP BP 01/12/18 08:00 98.0 F 111 H 16 01/12/18 07:29 98.0 F 111 H 16 112/51 L 103/54 L 111/54 L 01/12/18 05:01 01/12/18 04:08 97.7 F 97 20 113/52 L Pulse Ox 01/12/18 08:00 01/12/18 07:29 95 01/12/18 05:01 94 L 01/12/18 04:08 95 Weight Admit Weight 131 lb 8 oz Weight 132 lb 11.2 oz I&O: 01/11/18 01/12/18 01/13/18 06:59 06:59 06:59 Intake Total 652 2400 Output Total 800 Balance 652 1600 Result Diagrams: 01/11/18 04:25 01/11/18 04:25 Phys Exam - Physical Examination HEENT: PERRLA, moist MMs Neck: no JVD, supple Respiratory: no wheezing, no rales Cardiovascular: RRR, no significant murmur Gastrointestinal: soft, non-tender, positive bowel sounds Musculoskeletal: no edema, pulses present Neurological: non-focal, moves all 4 limbs Dx/Plan (1) UTI (urinary tract infection) Status: Acute Qualifiers: Urinary tract infection type: acute cystitis Hematuria presence: without hematuria Qualified Code(s): N30.00 - Acute cystitis without hematuria (2) CAD (coronary artery disease) Code(s): I25.10 - ATHSCL HEART DISEASE OF [place] CORONARY ARTERY W/O ANG PCTRS Status: Chronic Qualifiers: Coronary Disease-Associated Artery/Lesion type: bypass graft [place] vs. transplanted heart: [place] heart Associated angina: without angina Qualified Code(s): I25.810 - Atherosclerosis of coronary artery bypass graft(s) without angina pectoris (3) COPD (chronic obstructive pulmonary disease) Status: Chronic Qualifiers: COPD type: emphysema Emphysema type: unspecified Qualified Code(s): J43.9 - Emphysema, unspecified (4) H/O: lung cancer Code(s): Z85.118 - PERSONAL HISTORY OF MALIGNANT NEOPLASM OF [place]CHUS AND LUNG Status: Chronic Comment: has multiple mets (5) HTN (hypertension) Code(s): I10 - ESSENTIAL (PRIMARY) HYPERTENSION Status: Chronic Qualifiers: Hypertension type: essential hypertension Qualified Code(s): I10 - Essential (primary) hypertension (6) Hypothyroidism Code(s): E03.9 - HYPOTHYROIDISM, UNSPECIFIED Status: Chronic Qualifiers: Hypothyroidism type: unspecified Qualified Code(s): E03.9 - Hypothyroidism , unspecified (7) LV (left ventricular) mural thrombus Code(s): [id number] - Status: Acute - Plan hemostable -: is on xarelto for lv thrombus -: may dc home -: prognosis is poor family is aware * .
--- NOTE | 2018-01-12 17:38 | DIS ---
DATE OF ADMISSION: 01/11/2018 DATE OF DISCHARGE: 01/12/2018 PRIMARY DISCHARGE DIAGNOSES: Dehydration, resolved; urinary tract infection; acute encephalopathy, resolved; history of adenocarcinoma of lung with multiple metastases; coronary artery disease; Left ventricular thrombus on Xarelto; hypertension; hypothyroidism. PROCEDURES DONE DURING HOSPITALIZATION: The patient has had echo with 2D Doppler done, which showed an EF of 35%-40%. There is LV apical thrombus measuring 2.7 x 1.8 cm. Chest x-ray done showed stable large left hilar mass with spiculated margins peripherally similar to prior exam. There is also moderate sized left pleural effusion with atelectasis. CT brain without contrast showed vasogenic edema in the left anterior frontal lobe and biparietal lobes, again consistent with multifocal intracranial metastatic disease. There is no midline shift, no intraparenchymal or extraaxial hemorrhage is identified. No acute infarct seen. Urine culture, no growth. Blood cultures x2, no growth. Influenza antigen A and B were negative. H and H 8.4 and 27, platelet count is 89,000 with white count of 3.6, MCV is 96. BUN 9, creatinine 0.6. One set of cardiac enzymes are negative. UA showed large leukocyte esterase, greater than 50 WBCs and 1+ bacteria. DISCHARGE MEDICATIONS: Levaquin 500 mg p.o. daily for another 5 days for urinary tract infection, Colace 100 mg p.o. daily, bupropion extended release 150 mg p.o. q.a.m., levothyroxine 125 mcg p.o. q.a.m., Megace 40 mg p.o. twice daily, potassium chloride 595 mg p.o. daily, Compazine 10 mg p.o. q.6. hourly p.r.n., Xarelto 20 mg p.o. daily, simvastatin 40 mg p.o. daily. ALLERGIES: Allergic to AMIODARONE and IODINE. INPATIENT CONSULTS: Ms. Jarvis Jordan, nurse practitioner for Dr. Gaspar. DISCHARGE PLAN: The patient to follow up with Dr. Gaspar as advised. BRIEF COURSE DURING HOSPITALIZATION: The patient initially was brought to emergency room as she was found unresponsive by her . She apparently lost consciousness for approximately 10-15 minutes. The patient has a known history of adenocarcinoma of lung with multiple mets including brain. She was also recently diagnosed with LV thrombus and was placed on Xarelto, which the patient had not filled the prescription yet. She was also moderately dehydrated and was placed on IV hydration. Her initial UA was suspicious for UTI and she was placed on IV antibiotics and has been switched over to Levaquin. Please note, her urine culture has not grown any organisms so far. Blood cultures x2, no growth. I have discussed her findings, lab values and her poor prognosis with her and son at bedside. They would like to be DNR. She is otherwise hemodynamically stable this morning and is ambulating and eating better. She will be shortly discharged home. She needs to follow up with Dr. Gaspar as advised. Please see a [id number] documentation on [facility] for the day of discharge. Family is clearly aware of risk of bleeding with her brain mets and lung cancer and have opted to go for xarelto to prevent her LV thrombus enlarging and getting a cva. MTDD
== END 2018-01-12 10:53 | disposition home or self-care (01) ==
LOC: ERS 17:06 → 2SW 20:10
PROVIDERS: ADMIT Internal Medicine Infectious Disease; ATTEND Internal Medicine Infectious Disease
DX: E86.0 Dehydration (principal); G93.40 Encephalopathy, unspecified; I25.10 Atherosclerotic heart disease of native coronary artery without angina pectoris; I10 Essential (primary) hypertension; N30.00 Acute cystitis without hematuria; E03.9 Hypothyroidism, unspecified; J44.9 Chronic obstructive pulmonary disease, unspecified; C79.31 Secondary malignant neoplasm of brain; F17.210 Nicotine dependence, cigarettes, uncomplicated; D61.810 Antineoplastic chemotherapy induced pancytopenia; F32.9 Major depressive disorder, single episode, unspecified; Z66 Do not resuscitate; Z88.8 Allergy status to other drugs, medicaments and biological substances; Z91.041 Radiographic dye allergy status; Z85.118 Personal history of other malignant neoplasm of bronchus and lung; Z92.21 Personal history of antineoplastic chemotherapy; Z79.01 Long term (current) use of anticoagulants; Z79.899 Other long term (current) drug therapy; Z95.1 Presence of aortocoronary bypass graft; Z98.890 Other specified postprocedural states
CPT/HCPCS: 36415; 70450; 71045; 80048; 80053; 81003; 81015; 82553; 83605; 83735; 84484; 85025; 85610; 87040; 87086; 93005; 93306; 96361; 96365; 96376; G0378; J0696; J7050

== ENCOUNTER 2018-01-24 11:03 | Day surgery (SDC) | payer OTHER ==
[2018-01-24] MEDS ORDERED: Sodium Chloride 0.9% 30 ML ONE (11:18)
[2018-01-24] MEDS ORDERED: Sodium Chloride 0.9% 20 ML ONE (11:58)
[2018-01-24] MEDS ORDERED: Pembrolizumab 200 MG in Sodium Chloride 0.9% 250 ML 250 ML IV SCH (12:00)
[2018-01-24 12:09] VITALS: BP 124/60; TEMP 97.9
== END 2018-01-24 14:38 | disposition home or self-care (01) ==
LOC: ONC/OP 11:03
PROVIDERS: ATTEND Internal Medicine Hematology & Oncology
DX: Z51.11 Encounter for antineoplastic chemotherapy (principal); C34.91 Malignant neoplasm of unspecified part of right bronchus or lung; J90 Pleural effusion, not elsewhere classified; J42 Unspecified chronic bronchitis; F17.210 Nicotine dependence, cigarettes, uncomplicated; E03.9 Hypothyroidism, unspecified; I25.10 Atherosclerotic heart disease of native coronary artery without angina pectoris; Z79.01 Long term (current) use of anticoagulants; Z79.2 Long term (current) use of antibiotics; Z79.899 Other long term (current) drug therapy; Z88.8 Allergy status to other drugs, medicaments and biological substances; Z91.041 Radiographic dye allergy status; Z95.1 Presence of aortocoronary bypass graft
CPT/HCPCS: 96413; A4216; J7050; J9271

== ENCOUNTER 2018-01-26 16:23 | Inpatient (IN) | payer OTHER ==
[~2018-01-26 16:23] MED LIST changes: -Gadobenate Dimeglumine 529 MG/1 ML (20ML VIAL) ONE; +ISOVUE-370 76%-LOCM 1 ML ONE
[2018-01-26] MEDS ORDERED: Dexamethasone 4 mg/ml Vial ONE (16:51)
[2018-01-26 17:32] LABS: #Eosinphils 0.1 thou/uL (0.0-0.7); #Lymphocytes 0.6 thou/uL (1.20-3.40); #Monocytes 0.4 thou/uL (0.11-0.59); #Neutrophils 3.4 thou/uL (1.40-6.50); %Basophils 0.2 % (0.0-1.0); %Eosinophils 1.4 % (0.0-10.0); %Lymphocytes 13.7 % (21.0-51.0); %Neutrophils 75.8 % (42.0-75.0); Hemoglobin 9.8 g/dL (12.0-16.0); Mean Corpuscular HGB CONC 32.4 g/dL (32.0-36.0); Mean Corpuscular Hemoglobin 30.3 pg (27.0-31.0); Mean Corpuscular Volume 93.5 fl (81.0-99.0); Platelet Count 135 thou/uL (130-400); RBC Distribution Width 13.4 % (11.5-14.5); Red Blood Cell (RBC) Count 3.25 mill/uL (4.20-5.40); White Blood Cell (WBC) Count 4.4 thou/uL (4.8-10.8)
[2018-01-26 17:56] LABS: ALT (SGPT) Less than 7 U/L (8-55); AST (SGOT) 11 U/L (5-34); Albumin 3.5 g/dL (3.5-5.0); Alkaline Phosphatase 107 U/L (40-150); Anion Gap 12 mmol/L (10-20); BUN (Urea Nitrogen) 11 mg/dL (9.8-20.1); Bilirubin, Total 0.3 mg/dL (0.2-1.2); CK (CPK) 50 U/L (29-168); Calc. Creatinine Clearance 0 mL/min (70-130); Calcium 8.9 mg/dL (7.8-10.44); Carbon Dioxide 26 mmol/L (22-29); Chloride 97 mmol/L (98-107); Estimated GFR-MDRD 84; Globulin 3.2 g/dL (2.4-3.5); Glucose 96 mg/dL (70-105); Lipase 20 U/L (8-78); Protein, Total 6.7 g/dL (6.0-8.3); Sodium 131 mmol/L (136-145)
[2018-01-26 18:23] LABS: PTT 52.1 SEC (22.9-36.1); Prothrombin Time 43.1 SEC (12.0-14.7)
[2018-01-26 18:25] LABS: INR-International Normal Ratio 4.2
--- NOTE | 2018-01-26 18:29 | CT ---
CT HEAD WITHOUT IV CONTRAST 01/26/18 HISTORY: Altered mental status. COMPARISON: 01/10/18 FINDINGS: Again noted are areas of vasogenic edema, greatest in the left anterior frontal lobe but also present in the biparietal lobes. There is now increased density in the region of the vasogenic edema and lef t anterior frontal lobe likely attributable to hemorrhage in the region of the vasogenic edema. There is also a punctate focus of increased density now seen in the region of the vasogenic edema right pa rietal lobe adjacent to the posterior aspect body of the right lateral ventricle which also could rep resent a punctate focus of hemorrhage. Left frontal and parietal craniotomy defects are again present. Very tiny low density collection beneath the craniotomy defect left anterior frontal lobe is again pr esent and overall similar to the prior exam. There is no midline shift present. Mild sulcal effacemen t is seen in the region of the areas of vasogenic edema. Ventricular system is normal in size, shape and position except for minimal effacement of the anterior horn left lateral ventricle. No other interval change. IMPRESSION: Areas of vasogenic edema within the left anterior frontal lobe and biparietal lobes. There is greater area of increased density now present in the region of the vasogenic edema left anterior frontal lob e as well as in the right parietal lobe which is in the region of the patient's enhancing masses seen on MRI of 11/14/17, and this may be related to newly developed intratumoral areas of hemorrhage. The re is no midline shift or hydrocephalus present. No new areas of vasogenic edema are appreciated. Above findings discussed with Dr. Carter in the Emergency Department on 01/26/18 at 1723 hours. POS: [place]
[2018-01-26] MEDS ORDERED: levETIRAcetam In NaCl (Iso-Os) 1,500 MG in Premix Bag 1 BAG IVPB SCH (18:30)
[2018-01-26 18:44] LABS: Bilirubin Negative (Negative); Blood, Urine Negative (Negative); Clarity CLEAR (Clear); Glucose, Urine (Dipstick) Negative (Negative); Leukocyte Negative (Negative); Nitrite Negative (Negative); Protein, Urine (Dipstick) Negative (Neg-Trace); Specific Gravity, Urine 1.011 (1.002-1.036); Urobilinogen 0.2 mg/dL (0.2-1.0)
[2018-01-26] MEDS ORDERED: Lorazepam 2 MG/ML VIAL ONE ×2 (19:00)
[2018-01-26] MEDS ORDERED: HUMAN PROTHROMBIN COMPLX IV SCH (19:00)
[2018-01-26] MEDS ORDERED: ADMIXTURE FEE IV SCH (19:00)
[2018-01-26] MEDS ORDERED: Human Prothrombin Complx(PCC) 1,500 UNIT in Admixture Fee 60 EACH IV SCH (19:00)
[2018-01-26] MEDS ORDERED: Phytonadione 10 MG/ML AMP ONE (19:15)
[2018-01-26] MEDS ORDERED: Phytonadione 10 MG/ML AMP SLOW IVP SCH (19:15)
[2018-01-26 19:19] LABS: CKMB 1.5 ng/mL (0-6.6)
[2018-01-26 19:24] LABS: Troponin I 0.502 ng/mL (< 0.028)
--- NOTE | 2018-01-26 20:55 | RAD ---
PORTABLE AP CHEST X-RAY 01/26/18 HISTORY: Chest pain and altered mental status. Expressive aphasia. COMPARISON: 01/10/18 A right subclavian Mediport catheter is stable in position. Metallic wires again overlie the mediasti num. Large left hilar mass with spiculated margins is again present and similar to the prior study. P leural and parenchymal changes at the left lung base are also again present likely related to left pl eural effusion and atelectasis. Minimal interstitial densities present within the right lung apex and right lung base. Chest is overall unchanged when compared to the prior exam. IMPRESSION: Stable chest. POS: [facility]
[2018-01-26] MEDS ORDERED: Phytonadione 5 MG in Sodium Chloride 0.9% 50 ML IVPB SCH (21:00)
--- NOTE | 2018-01-26 21:54 | CT ---
CT ABDOMEN AND PELVIS WITH IV CONTRAST 01/26/18 HISTORY: Abdominal pain. Patient found in a chair unresponsive. History of stage IV lung/brain cancer. Patien t also reports suprapubic abdominal pain. Patient fell out of bed two nights ago and began vomiting. COMPARISON: CT thorax on 11/18/17 as well as prior PET CT scan on 11/14/17. FINDINGS: As noted on the recent CT scan of the thorax, there is again noted a soft tissue density in a left hi lar location and involving the mediastinum likely related to patient's known neoplastic process. A mo derate sized left pleural effusion is again noted. There are increased interstitial densities as well as minimal ground glass densities seen in each lung base, some of these findings are probably chroni c in origin. However, infectious process cannot be entirely excluded. Dense vascular calcifications seen in the coronary arteries as well as involving the abdominal aorta and iliac arteries. There is irregular atherosclerotic plaque in the abdominal aorta. The abdominal a daniel is focally ectatic measuring 2.9 cm with dense vascular calcifications also seen in the iliac ar teries. The previously noted masses involving each adrenal gland which of which demonstrates heterogeneous en hancement predominantly on the left with large area of central necrosis present is again present. The mass seen in the region of the left adrenal gland measures 10.3 cm x 6 cm. Measurement on the recent CT scan exam was 8.7 cm x 6 cm. Mass in the region of the right adrenal gland measures 4.7 cm x 2.1 cm and previous measurement was 6 cm x 4 cm. There is a low density area now seen within the medial a spect of the right hepatic lobe adjacent to the right adrenal lesion and this could be related to inv asion into the liver in this region. There is a low density lesion measuring 1.3 cm within the tip of the posterior segment right hepatic lobe which probably represents a metastatic lesion. This was not definitely seen on the prior PET CT exam. There are a few mildly prominent retrocrural lymph nodes noted again seen with mildly prominent lymph node adjacent to the left adrenal gland which measures less than 9 mm in short axis dimension but are likely related to abnormal lymph nodes and lymphadenopathy. The spleen, pancreas, and bilateral kidneys demonstrate a normal CT appearance. The large left adrena l mass does abut the left kidney but does not appear to invade the left kidney. Urinary bladder is distended and normal in appearance. There is mild generalized mesenteric edema present. No lytic or sclerotic osseous lesion is seen on this exam. No other interval change. IMPRESSION: 1. Incomplete visualization of a left hilar and mediastinal mass with moderate size left pleural effusion. 2. Mild increased interstitial densities at each lung base with a few minimal ground glass densi ties. Infectious process cannot be entirely excluded. These interstitial densities are more prominent than on the prior exam. 3. Large heterogeneously enhancing bilateral adrenal. The left adrenal mass is larger in size wi th right adrenal mass not significantly changed in size, but there is low density area now seen in th e most medial aspect of the right hepatic lobe which could potentially be related to invasion into th e adjacent right hepatic lobe. 4. Retrocrural and left periaortic lymphadenopathy. 5. Mild generalized mesenteric edema. 6. Irregular atherosclerotic plaque and dense vascular calcifications present within the abdomin al aorta and iliac arteries. POS: [place]
[2018-01-26] MEDS ORDERED: Fentanyl 100 MCG/2 ML VIAL ONE (21:59)
--- NOTE | 2018-01-26 23:05 | CT ---
NONCONTRAST CT HEAD 01/26/18 HISTORY: Change in mental status. Altered mental status. COMPARISON: 01/26/18 at 1704 hours. FINDINGS: There is motion artifact which limits detail. Helical scan was obtained due to patient's inability to cooperate. The areas of vasogenic edema in the biparietal regions and left anterior frontal lobe are again present. Increased density is again seen in the region of the vasogenic edema left anterior fr ontal lobe likely related to intratumoral hemorrhage within the left frontal lobe. There is also incr eased density within the region of vasogenic edema in the right parietal region which was also seen o n the prior study, although the area of increased density does appear slightly increased in size, but this could be related to slice selection on this exam. The area of increased density measures approx imately 9 mm in the right parietal region and also is likely related to intratumoral hemorrhage. This is in the region of an enhancing metastatic lesion noted on MRI of brain on 01/04/18. The area of incr eased density suggesting hemorrhage which was not seen on the CT scan on 01/10/18 is likely related to interval development of hemorrhage within these lesions, but the area of hemorrhage conforms to the lesions noted on the prior MRI exam. No additional areas of intraparenchymal or extra-axial hemorrhage are seen. There is no midline shift . No acute cortical infarction is evident on this exam. IMPRESSION: Areas of vasogenic edema in each cerebral hemisphere related to metastatic disease better visualized on prior MRI of brain on 01/04/18. However, there is increased density in the region of previously seen enhancing lesions likely related to intratumoral hemorrhage (only seen in the lesions in the left an terior frontal lobe and right parietal lobe). POS: [place]
[2018-01-27] MEDS ORDERED: Haloperidol Lactate 5 MG/ML VIAL SLOW IVP PRN (00:24)
[2018-01-27] MEDS ORDERED: Scopolamine 1.5 mg/72 hour Patch TD PRN (00:24)
[2018-01-27] MEDS ORDERED: Ondansetron HCl/PF 4 MG/2 ML Vial IVP PRN (00:24)
[2018-01-27] MEDS ORDERED: diphenhydrAMINE 50 MG/ML VIAL IVP PRN (00:24)
[2018-01-27] MEDS ORDERED: Acetaminophen 650 MG Suppository PR PRN (00:24)
--- NOTE | 2018-01-27 00:59 | CON ---
DATE OF CONSULTATION: 01/26/2018 ATTENDING PHYSICIAN: Jonah Evangelista MD HISTORY OF PRESENT ILLNESS: The patient is a 58-year-old female with a past medical history of stage IV lung cancer with metastases to the brain and adrenal glands, [facility]. Regarding the patient's recent cancer history, she has had a recent left frontal intracranial metastasis resection by Dr. Rogers on 07/2017. She was also recently admitted on 01/11/2018 for altered mental status, dehydration, and urinary tract infection. CT head at that time showed multiple mets with surrounding vasogenic edema and she was also found to have an LV thrombus and was subsequently placed on Xarelto. Today, she presents for suspected seizure. Family reports the patient became stiff and unresponsive with slight shaking in her chair for approximately 10 minutes. They contacted EMS who brought the patient to the emergency department for further evaluation. Family also reports the patient suffered a mechanical fall 2 days ago, hitting her head on a dresser. No LOC and she was not evaluated for this event. The patient was evaluated with CT head on arrival, which shows multiple intracranial lesions consistent with metastatic disease with an increasing amount of surrounding vasogenic edema and hemorrhagic component around the left frontal lesion. The family does report that the patient is DNR. She has been seen in the past by Cindy, but not currently on seizure medications. She is not currently on steroids. INR in the emergency department was 4.2 and patient was treated with vitamin K. PAST MEDICAL HISTORY: Significant for Stage IV lung cancer with metastases to the brain and adrenal glands; coronary artery disease; LV thrombus, currently on Xarelto; hyperlipidemia; hypothyroidism. PAST SURGICAL HISTORY: CABG in 2011, left frontal intracranial mass resection in 07/2017, chemotherapy, port placement. SOCIAL HISTORY: The patient smokes one-half pack of cigarettes a day. She does not use any drugs. Social EtOH use. ALLERGIES: AMIODARONE, IODINE. CURRENT MEDICATIONS: Simvastatin 40 mg p.o. daily, Xarelto 10 mg p.o. b.i.d., Synthroid 125 mcg p.o. daily, Wellbutrin 75 mg p.o. daily, potassium one tab p.o. daily. REVIEW OF SYSTEMS: Per HPI. PHYSICAL EXAMINATION: VITAL SIGNS: Blood pressure is 129/69, respiration rate is 22. The patient is 95% on room air, pulse is 106, temperature is 98.8. CONSTITUTIONAL: She is awake and alert, in no acute distress. HEAD: Normocephalic, atraumatic. EYES: PERRLA. Extraocular movements are intact. ENT: Oral mucosa is pink, intact, and moist. NECK: Nontender to palpation. Free active range of motion, no meningismus or nuchal rigidity. RESPIRATORY: Breathing comfortably. CARDIOVASCULAR: Regular rate and rhythm. MUSCULOSKELETAL: Free active range of motion of all extremities. No focal motor weakness is appreciated. NEUROLOGIC: She is A and O x3. She has normal speech. Nonfocal neurologic deficits are appreciated. ASSESSMENT AND PLAN: The patient has known stage IV lung cancer with brain metastases and appears to have worsening vasogenic edema and new area of hemorrhagic component to the left frontal region. She is also currently on Xarelto for recent LV thrombus. We will recommend that this medication to be discontinued at this time. The patient has also been given vitamin K in the ER , considering her elevated INR of 4.2. Patient will be admitted to the medicine service and we have also recommended a neurology consult for suspected seizure episode. Patient will be started on Decadron 4 mg q.6 hours as well as an H2 graeme. We will plan to repeat her head CT in the morning and continue to follow along closely in the patient care. Please reach out to the Neurosurgery Service for additional questions or concerns. GEOVANNI
[2018-01-27 01:11] VITALS: BMI 19.2
--- NOTE | 2018-01-27 01:38 | HP ---
PRIMARY CARE PHYSICIAN: Blaze Sy MD REASON FOR ADMISSION: Hospice admission for comfort care. HISTORY OF PRESENT ILLNESS: A 58-year-old female who has underlying lung cancer and which has metast asized, who was brought to ER for altered mental status. The patient was not able to provide any his tory. This patient was brought to ER and she had abdomen and pelvis CT scan, which showed left hilar and mediastinal mass and left pleural effusion; ground glass opacity in both lung bases; bilateral a drenal mass, left more than right; and periaortic lymphadenopathy. CT brain showed vasogenic edema, increased density which was consistent with hemorrhage. Neurosurgeon was consulted and they do not h ave anything to offer. They recommend hospice. Subsequently, hospice was consulted. Patient was ap propriate for inpatient hospice care. There was no bed available for hospice care in the [facility] and that is why [facility] wanted to admit this patient in our hospita l under sound until they have open bed available. Family member made this patient DNR and they only want comfort care and family member agreed with that decision. ALLERGIES: AMIODARONE and IODINE. CURRENT HOME MEDICATIONS: Zocor 40 mg p.o. at bedtime, Xarelto 10 mg twice daily, Synthroid 125 mcg p.o. daily, Wellbutrin 150 mg p.o. daily, potassium 1 tablet p.o. daily, Zofran as needed, Tylenol No .3 one tablet q.6 hourly p.r.n., prochlorperazine as needed. PAST MEDICAL HISTORY: Metastatic lung cancer, status post chemoradiation therapy, coronary artery di sease, hypertension, hypothyroidism, paroxysmal atrial fibrillation, chronic anticoagulation, hypothy roidism, dyslipidemia. PAST SURGICAL HISTORY: CABG, brain tumor removal, hysterectomy. PAST PSYCHIATRIC HISTORY: Anxiety and depression. SOCIAL HISTORY: Patient has history of smoking about 1 pack per day for 30 years. No history of alc ohol abuse or other illicit drug abuse. Lives with the family. FAMILY HISTORY: No strong family history of premature coronary artery disease, stroke, or cancer. EMERGENCY ROOM COURSE: The patient is given vitamin K 5 mg, fentanyl, another dose of vitamin K, Duo Neb therapy, Kcentra, Ativan 2 mg, Keppra 1500 mg, Decadron 10 mg, and IV fluid. REVIEW OF SYSTEMS: All review of systems tried to review with the patient, but unable to review zuri use of altered mental status. PHYSICAL EXAMINATION: VITAL SIGNS: Blood pressure 129/69, pulse 106, respiratory rate 22, temperature 98.8, saturation 95% on room air, weight 56.2 kilograms. GENERAL: The patient is completely disoriented, distress due to pain. HEAD: Normocephalic, atraumatic. Alopecia. EYES: Pupils round, reactive to light. Extraocular muscle intact. ENT: Oropharynx within normal limits. Moist mucous membranes. NECK: Supple. No JVD, no thyromegaly, no meningeal signs of irritation. LUNGS: Clear to auscultation. Few basilar rales noted. CARDIAC: S1, S2 regular, tachycardia. No murmur elicited, no gallop, no rub. ABDOMEN: Soft, no obvious discomfort noted on deep palpation. BACK: Unremarkable, no CVA tenderness. EXTREMITIES: Upper extremity: Passive movement of all joints are normal. Lower extremities: No ed ronaldo. NEUROLOGIC: Difficult to assess neurological examination because of altered mental status. PSYCHIATRIC: Unable to assess at this point. SKIN: No skin rash. SIGNIFICANT LABORATORY AND DIAGNOSTIC DATA: EKG showing low voltage QRS complex, nonspecific ST-T ch anges. CT of the abdomen and pelvis consistent with left hilar and mediastinal mass with moderate-si zed left pleural effusion, ground glass opacity in both lung bases, bilateral adrenal mass, left more than right. Left periaortic lymphadenopathy mesenteric edema. CT brain showing vasogenic edema wit hin the left anterior frontal lobe and biparietal lobe. BNP 1140, CK-MB 1.5, troponin I 0.502. Urin alysis normal. INR 4.2, lipase 20, CK 50. Sodium 131, potassium 4.0, chloride 97, carbon dioxide 26 , anion gap 12, BUN 11, creatinine 0.71, glucose 96, calcium 8.9. LFTs: Protein 6.7, albumin 3.5, A ST 11, ALT less than 7, alkaline phosphatase was 107, and ammonia 12. WBC 4.4, hemoglobin 9.8, plate let 135,000. ASSESSMENT AND PLAN: 1. Acute encephalopathy. 2. Metastatic lung cancer. 3. Multiple brain mets with vasogenic edema and intratumoral hemorrhage. 4. Left hilar and mediastinal mass with a left pleural effusion. 5. Bilateral adrenal mass. 6. Periaortic lymphadenopathy. 7. Chronic systolic heart failure. 8. Coagulopathy. 9. Hyponatremia. 10. Demand ischemia of myocardium. 11. Normocytic normochromic anemia. 12. Physical deconditioning. PLAN: Code status addressed with the patient's family member. Patient's is surrogate decisi on maker. He decided to be DNR. He does not want any specific aggressive treatment and he only want s comfort care. This patient's prognosis is extremely poor. At this point, the patient is already a ccepted for inpatient hospice care. We will keep this patient in our hospital because there is no be d available at a hospice facility. Once bed opened, then this patient can be transferred to Hospice facility. This patient's prognosis is extremely poor. Plan of care discussed with the patient's family member at bedside in the emergency room. Prognosis addressed. Condition terminal.
[2018-01-27] MEDS: Lorazepam 2 MG/ML VIAL SLOW IVP PRN ×3 (03:19→13:25)
[2018-01-27 05:50] LABS: INR-International Normal Ratio 1.7; PTT 36.8 SEC (22.9-36.1); Prothrombin Time 20.3 SEC (12.0-14.7)
[2018-01-27 08:41] VITALS: BP 103/61; TEMP 98.4
--- NOTE | 2018-01-27 16:40 | DIS ---
DATE OF DISCHARGE: 01/27/2018 DISCHARGE DISPOSITION: Inpatient hospice. BRIEF HOSPITAL COURSE: The patient is a 58-year-old female with lung cancer with metastasis, present ed to the emergency room with altered mentation. The CT scan of the brain showed vasogenic edema wit h hemorrhage. Neurosurgery was consulted in the emergency room. The patient was admitted to the [facility] hosp[facility] since there were no beds available at the [facility]. The patient will be discharged to [facility] today since they have an open bed. FINAL DIAGNOSES: Please refer to the history and physical dictated earlier today for details.
--- NOTE | 2018-02-03 15:13 | EKG ---
Test Reason : Blood Pressure : / mmHG Vent. Rate : 100 BPM Atrial Rate : 100 BPM P-R Int : 126 ms QRS Dur : 078 ms QT Int : 354 ms P-R-T Axes : 002 022 122 degrees QTc Int : 456 ms Normal sinus rhythm Low voltage QRS Cannot rule out Anterior infarct , age undetermined Abnormal ECG Confirmed by HOLLAND SIGALA ([id number]), web content editor ALICIA BECERRA ([id number] on 02/03/2018 3:12:42 PM Referred By: Confirmed By:HOLLAND SIGALA
== END 2018-01-27 15:55 | disposition hospice, inpatient (51) | DRG 54 ==
LOC: ERS 16:23 → T4-B 01-27 00:21
PROVIDERS: ADMIT Internal Medicine; ATTEND Internal Medicine
DX: C79.31 Secondary malignant neoplasm of brain (principal); G93.6 Cerebral edema; I61.8 Other nontraumatic intracerebral hemorrhage; G93.40 Encephalopathy, unspecified; J90 Pleural effusion, not elsewhere classified; I11.0 Hypertensive heart disease with heart failure; I50.22 Chronic systolic (congestive) heart failure; C79.72 Secondary malignant neoplasm of left adrenal gland; C79.71 Secondary malignant neoplasm of right adrenal gland; C34.90 Malignant neoplasm of unspecified part of unspecified bronchus or lung; I24.8 Other forms of acute ischemic heart disease; E87.1 Hypo-osmolality and hyponatremia; I25.10 Atherosclerotic heart disease of native coronary artery without angina pectoris; E03.9 Hypothyroidism, unspecified; I48.0 Paroxysmal atrial fibrillation; E78.5 Hyperlipidemia, unspecified; R59.1 Generalized enlarged lymph nodes; F17.210 Nicotine dependence, cigarettes, uncomplicated; Z66 Do not resuscitate; Z92.21 Personal history of antineoplastic chemotherapy; Z92.3 Personal history of irradiation; Z88.8 Allergy status to other drugs, medicaments and biological substances; Z79.01 Long term (current) use of anticoagulants; Z79.899 Other long term (current) drug therapy; Z95.1 Presence of aortocoronary bypass graft
CPT/HCPCS: 36415; 70450; 71045; 74177; 80053; 81003; 82140; 82550; 82553; 83690; 83880; 84484; 85025; 85610; 85730; 86850; 86900; 86901; 87040; 93005; 96361; 96365; 96367; 96375; 99292; A4353; C9132; J1100; J1953; J2060; J2270; J3010; J3430; J7050; J7620